=== PATIENT | female | born 1950 | race Caucasian/White ===

== ENCOUNTER 2017-05-26 21:51 | Inpatient (IN) ==
[2017-05-26] MEDS ORDERED: *HR* HYDROmorphone (PF) 1 MG/ML SYRINGE IVP ONE (22:24)
--- NOTE | 2017-05-26 22:24 | Emergency Department Note ---
START Narrative - START START: 67-year-old female who presents with concern for leg swelling and increasing pain from metastatic cancer. She does have more swelling on the right than left. She has had previous blood clot in the past. I would obtain basic labs, establish baseline creatinine clearance. Proceed with treatment with anticoagulation at this point and admission for pain control as well as evaluation of ongoing pain as she has no resources at home set up for her now inability to ambulate. She has no weakness on examination. Final disposition pending results of advanced imaging as well as laboratory analyses.
[2017-05-26 22:45] LABS: Basophils # 0.1 K/mcL (0.0-0.2); Basophils % 0.7 %; Eosinophils # 0.1 K/mcL (0.0-0.6); Eosinophils % 0.8 %; Hematocrit 33.6 % (35.3-44.9); Hemoglobin 11.5 g/dL (11.5-15.4); Immature Granulocytes % 0.3 % (0-4); Immature Platelets 3.3 % (1.1-6.1); Lymphocytes # 2.4 K/mcL (0.6-4.6); Lymphocytes % 31.5 %; Mean Corpuscular HGB Conc 34.2 g/dL (31.6-35.5); Mean Corpuscular Hemoglobin 36.5 pg (28.0-33.3); Mean Corpuscular Volume 106.7 fL (83.0-100.0); Monocytes # 0.9 K/mcL (0.0-1.3); Monocytes % 12.5 %; Neutrophils # 4.1 K/mcL (1.6-8.9); Platelet Count 165 K/mcL (140-400); Red Blood Count 3.15 M/mcL (3.82-4.97); Red Cell Distribution Width 17.1 % (11.5-14.5); Segmented Neutrophils % 54.2 %
[2017-05-26 22:52] LABS: INR 1.5; Prothrombin Time 15.8 Seconds (9.4-12.1)
[2017-05-26 22:57] LABS: Alanine Aminotransferase 35 Units/L (0-55); Albumin 2.4 g/dL (3.5-5.0); Albumin/Globulin Ratio 0.5 (1.1-2.2); Alkaline Phosphatase 549 Units/L (38-126); Aspartate Amino Transferase 142 Units/L (5-34); BUN/Creatinine Ratio 15 (6-26); Bilirubin,Total 5.7 mg/dL (0.2-1.2); Blood Urea Nitrogen 14 mg/dL (7-20); Calcium 8.4 mg/dL (8.6-10.8); Carbon Dioxide 31 mEq/L (19-29); Chloride 97 mEq/L (98-109); Globulin 4.6 g/dL (2.4-3.5); Glucose 117 mg/dL (70-99); Osmolality,Calculated 284 (280-300); Potassium 3.2 mEq/L (3.5-4.5); Sodium 136 mEq/L (136-145); eGFR For African Americans > 60 (> 60); eGFR For Non-African Americans 58 (> 60)
[2017-05-26] MEDS ORDERED: 0.9 % Sodium Chloride 250 ML IVC ONE (23:11)
[2017-05-27] MEDS ORDERED: *HR* FentaNYL (PF) 100 MCG/2 ML VIAL IVP ONE (01:06)
[2017-05-27] MEDS ORDERED: *HR* Enoxaparin 100 MG/ML SYRINGE SQ STA (01:09)
--- NOTE | 2017-05-27 01:39 | Emergency Department Note ---
Disposition Clinical Impression: Lower extremity edema Disposition: Admitted As Inpatient Condition: Good Time of Disposition: 02:27 General Adult HPI - General Chief complaint: ED Extremity Problem,Nontraumatic Stated complaint: R leg pain/swelling states has cancer Time Seen by Provider: 05/26/17 22:25 Source: patient, family Limitations: no limitations Nursing Notes Reviewed: Yes Vital Signs Reviewed: Yes - History of Present Illness HPI Narrative: 67-year-old female with known history of metastatic breast cancer presents 3 day history of right leg pain, and swelling. She states earlier in the week she was able to walk without difficulty and now she is unable to walk. She had contacted her oncologist earlier in the week, and they had advised to increase the pain medications and if that did not help the to come to the emergency department. Reported that the oncologist has recommended admission. Patient also mentions that her oncologist is wanted her to restart chemotherapy, however they are waiting an evaluation from her GI doctor, Dr. Brennan Patient does have a history of previous DVT. Patient denies any fever, chest pain, shortness of breath, abdominal pain. Pain Scale: 8 - Related Data Home Medications Medication Instructions Recorded Confirmed Cholecalciferol (Vitamin D3) 50,000 unit PO QWEEK 11/15/16 05/23/17 [Vitamin D] Furosemide [Lasix] 20 mg PO DAILY 11/15/16 05/23/17 Previous Rx's Medication Instructions Recorded Prochlorperazine Maleate 10 mg PO Q6HR PRN #30 tablet 08/03/16 [Compazine] Amitriptyline HCl 75 mg PO HS #30 tablet 11/30/16 Omeprazole [PriLOSEC] 20 mg PO DAILY #30 capsule 01/09/17 Diphenoxylate/Atropine [Lomotil 2 each PO QID PRN #90 tablet 01/21/17 2.5 mg/0.025 mg] Loperamide [Imodium] 2 mg PO PRN PRN #90 capsule 01/21/17 Sennosides [Senna] 2 tab PO HS #60 tablet 02/12/17 Benzonatate [Tessalon] 200 mg PO TID PRN #20 capsule 04/08/17 Albuterol Sulfate [Albuterol 2 puff IH Q4HR PRN #1 hfa.aer.ad 04/19/17 Inhaler] FentaNYL PATCH [Duragesic] 12 mcg TD Q72H #10 patch.td72 05/13/17 Morphine Immed Rel [Morphine 15 mg PO Q2-4H PRN #90 tab 05/13/17 Sulfate] Megestrol Acetate [Megace] 10 ml PO DAILY #300 udc 05/23/17 Allergies Allergy/AdvReac Type Severity Reaction Status Date / Time paper tape AdvReac Unknown Unknown Uncoded 05/23/17 15:58 Constitutional: Denies: fever, chills Eyes: Denies: eye discharge ENT ED: Denies: throat pain Cardiovascular: Denies: palpitations Respiratory: Denies: dyspnea Gastrointestinal: Denies: abdominal pain Genitourinary: Denies: dysuria Musculoskeletal: Denies: neck pain Integumentary: Denies: rash Neurological: Denies: headache, weakness, numbness, paresthesias Endocrine: Denies: fatigue Hematological/Lymphatic: Denies: easy bleeding Allergic/Immunologic: Denies: facial swelling Past Medical History - Past Medical History Medical history: Reports: non-contributory, cancer Surgical history: Reports: hysterectomy, orthopedic, other Psychiatric history: Reports: depression - Social History Smoking Status: Never smoker Smokeless Tobacco Status: No Alcohol use: Reports: none Drug use: Reports: none Physical Exam - General Limitations: no limitations General appearance: alert, in no apparent distress - Head Head exam: normocephalic - Eye Eye exam: Present: EOMI. Absent: conjunctival injection - ENT ENT exam: normal oropharynx, mucous membranes moist - Neck Neck exam: Present: full ROM - Chest Chest inspection: Absent: symmetric chest wall rise - Respiratory Respiratory exam: Absent: respiratory distress - Cardiovascular Cardiovascular exam: Present: regular rate - Extremities Exam Extremities exam: Present: normal capillary refill - Expanded Lower Extremity Exam Hip/Pelvis exam: Present: full ROM Upper leg exam: Present: swelling Knee exam: Present: tenderness, swelling Lower leg exam: Present: tenderness, swelling Ankle exam: Present: tenderness, swelling Foot/toe exam: Present: normal inspection Neurovascular/Tendon exam: Present: normal capillary refill. Absent: pulse deficit, motor deficit, sensory deficit, tendon deficit Gait: observed and normal - Back Exam Back exam: Present: full ROM - Neurological Exam Neurological exam: Present: alert - Psychiatric Psychiatric exam: Present: normal affect, normal mood - Skin Skin exam: Present: warm, dry, intact, pallor. Absent: rash, cyanosis, diaphoresis Course Course Narrative: Patient initially seen by [facility] provider, Dr. Hoang, please see his earlier documentation for details. 67-year-old female with known history of metastatic brain cancer and cirrhosis presents to emergency department three-day history of leg pain. She was advised to come the emergency Department for admission from her oncologist. Patient was initially seen by this provider Dr. Hoang. Please see his earlier documentation for details. I did discuss patient with Dr. Hoang, who had advised for admission to to patient's probable DVT, and pain control. Patient has been unable to walk at home, and she has limited resources as well. Dr. Hoang had recommended labs followed by Lovenox no contraindications, but advised he be studied could be performed after admitted. Patient seen and examined. She is resting comfortably. No acute distress. Workup pending. - Reevaluation(s) Reevaluation #1: Patient needs high probability for DVT per well's criteria. Per facility protocol will initiate Lovenox. Will discuss patient with hospitalist for admission uncontrolled further evaluation of her leg pain, and possible GI consult. Patient's last CT scan April 2017. Stable liver metastases, abdominopelvic CDs, possible osseous metastases, no evidence of pulmonary metastases. Time: 01:15 Reevaluation #2: Discussed patient with Dr. Mendieta, who agreed for acceptance to floor. Hospitalists provider have also asked for doppler. Time: 02:27 Vital Signs Temperature 98.1 F 05/26/17 21:52 Pulse Rate 82 05/26/17 21:52 Respiratory Rate 16 05/26/17 21:52 Blood Pressure 164/82 05/26/17 21:52 O2 Sat by Pulse Oximetry 95 05/26/17 21:52 Temperature 97.5 F L 05/27/17 04:05 Pulse Rate 79 05/27/17 04:05 Respiratory Rate 18 05/27/17 04:05 Blood Pressure 114/75 05/27/17 04:05 O2 Sat by Pulse Oximetry 96 05/27/17 04:56 Oxygen Delivery Oxygen Delivery Nasal Cannula Medical Decision Making - MDM Narrative Medical decision making narrative: All Lab Results (24 Hours) 05/26/17 05/26/17 05/26/17 Range/Units 22:39 22:39 22:39 WBC 7.5 D (4.3-11.1) K/mcL RBC 3.15 L (3.82-4.97) M/mcL Hgb 11.5 (11.5-15.4) g/dL Hct 33.6 L (35.3-44.9) % MCV 106.7 H (83.0-100.0) fL MCH 36.5 H (28.0-33.3) pg MCHC 34.2 (31.6-35.5) g/dL RDW 17.1 H (11.5-14.5) % Plt Count 165 (140-400) K/mcL MPV 10.0 (9.4-12.4) fL Immature Gran % 0.3 (0-4) % Seg Neutrophils % 54.2 % Lymphocytes % 31.5 % Monocytes % 12.5 % Eosinophils % 0.8 % Basophils % 0.7 % Neutrophils # 4.1 (1.6-8.9) K/mcL Lymphocytes # 2.4 (0.6-4.6) K/mcL Monocytes # 0.9 (0.0-1.3) K/mcL Eosinophils # 0.1 (0.0-0.6) K/mcL Basophils # 0.1 (0.0-0.2) K/mcL Immature Plt Fraction 3.3 (1.1-6.1) % PT 15.8 H (9.4-12.1) Seconds INR 1.5 Sodium 136 (136-145) mEq/L Potassium 3.2 L (3.5-4.5) mEq/L Chloride 97 L (98-109) mEq/L Carbon Dioxide 31 H (19-29) mEq/L BUN 14 (7-20) mg/dL Creatinine 0.96 (0.57-1.11) mg/dL Est GFR ( Amer) > 60 (> 60) Est GFR (Non-Af Amer) 58 L (> 60) BUN/Creatinine Ratio 15 (6-26) Glucose 117 H (70-99) mg/dL Calculated Osmolality 284 (280-300) Calcium 8.4 L (8.6-10.8) mg/dL Total Bilirubin 5.7 H (0.2-1.2) mg/dL AST 142 H (5-34) Units/L ALT 35 (0-55) Units/L Alkaline Phosphatase 549 H (38-126) Units/L Serum Total Protein 7.0 (6.0-8.3) g/dL Albumin 2.4 L (3.5-5.0) g/dL Globulin 4.6 H (2.4-3.5) g/dL Albumin/Globulin Ratio 0.5 L (1.1-2.2) - Lab Data Lab results reviewed: Yes I reviewed the patient's lab results. Result diagrams: 05/26/17 22:39 05/26/17 22:39 Lab Results 05/26/17 05/26/17 05/26/17 Range/Units 22:39 22:39 22:39 WBC 7.5 D (4.3-11.1) K/mcL RBC 3.15 L (3.82-4.97) M/mcL Hgb 11.5 (11.5-15.4) g/dL Hct 33.6 L (35.3-44.9) % MCV 106.7 H (83.0-100.0) fL MCH 36.5 H (28.0-33.3) pg MCHC 34.2 (31.6-35.5) g/dL RDW 17.1 H (11.5-14.5) % Plt Count 165 (140-400) K/mcL MPV 10.0 (9.4-12.4) fL Immature Gran % 0.3 (0-4) % Seg Neutrophils % 54.2 % Lymphocytes % 31.5 % Monocytes % 12.5 % Eosinophils % 0.8 % Basophils % 0.7 % Neutrophils # 4.1 (1.6-8.9) K/mcL Lymphocytes # 2.4 (0.6-4.6) K/mcL Monocytes # 0.9 (0.0-1.3) K/mcL Eosinophils # 0.1 (0.0-0.6) K/mcL Basophils # 0.1 (0.0-0.2) K/mcL Immature Plt Fraction 3.3 (1.1-6.1) % PT 15.8 H (9.4-12.1) Seconds INR 1.5 Sodium 136 (136-145) mEq/L Potassium 3.2 L (3.5-4.5) mEq/L Chloride 97 L (98-109) mEq/L Carbon Dioxide 31 H (19-29) mEq/L BUN 14 (7-20) mg/dL Creatinine 0.96 (0.57-1.11) mg/dL Est GFR ( Amer) > 60 (> 60) Est GFR (Non-Af Amer) 58 L (> 60) BUN/Creatinine Ratio 15 (6-26) Glucose 117 H (70-99) mg/dL Calculated Osmolality 284 (280-300) Calcium 8.4 L (8.6-10.8) mg/dL Total Bilirubin 5.7 H (0.2-1.2) mg/dL AST 142 H (5-34) Units/L ALT 35 (0-55) Units/L Alkaline Phosphatase 549 H (38-126) Units/L Serum Total Protein 7.0 (6.0-8.3) g/dL Albumin 2.4 L (3.5-5.0) g/dL Globulin 4.6 H (2.4-3.5) g/dL Albumin/Globulin Ratio 0.5 L (1.1-2.2) Urine Color (Yellow) Urine Clarity (Clear) Urine pH (5.0-8.0) pH Units Ur Specific [place] (1.010-1.025) Urine Protein (Neg-Trace) mg/dL Urine Glucose (UA) (Normal) mg/dL Urine Ketones (Negative) mg/dL Urine Blood (Negative) Urine Nitrite (Negative) Urine Bilirubin (Negative) Urine Urobilinogen (Normal) mg/dL Ur Leukocyte Esterase (Negative) Urine Microscopic RBC (0-3) per hpf Urine Microscopic WBC (0-3) per hpf Ur Squamous Epith Cells (None-Few) per lpf Urine Bacteria (None-Few) per hpf Hyaline Casts (None-Few) per lpf Ur Culture Indicated? (NO) 05/27/17 Range/Units 03:00 WBC (4.3-11.1) K/mcL RBC (3.82-4.97) M/mcL Hgb (11.5-15.4) g/dL Hct (35.3-44.9) % MCV (83.0-100.0) fL MCH (28.0-33.3) pg MCHC (31.6-35.5) g/dL RDW (11.5-14.5) % Plt Count (140-400) K/mcL MPV (9.4-12.4) fL Immature Gran % (0-4) % Seg Neutrophils % % Lymphocytes % % Monocytes % % Eosinophils % % Basophils % % Neutrophils # (1.6-8.9) K/mcL Lymphocytes # (0.6-4.6) K/mcL Monocytes # (0.0-1.3) K/mcL Eosinophils # (0.0-0.6) K/mcL Basophils # (0.0-0.2) K/mcL Immature Plt Fraction (1.1-6.1) % PT (9.4-12.1) Seconds INR Sodium (136-145) mEq/L Potassium (3.5-4.5) mEq/L Chloride (98-109) mEq/L Carbon Dioxide (19-29) mEq/L BUN (7-20) mg/dL Creatinine (0.57-1.11) mg/dL Est GFR ( Amer) (> 60) Est GFR (Non-Af Amer) (> 60) BUN/Creatinine Ratio (6-26) Glucose (70-99) mg/dL Calculated Osmolality (280-300) Calcium (8.6-10.8) mg/dL Total Bilirubin (0.2-1.2) mg/dL AST (5-34) Units/L ALT (0-55) Units/L Alkaline Phosphatase (38-126) Units/L Serum Total Protein (6.0-8.3) g/dL Albumin (3.5-5.0) g/dL Globulin (2.4-3.5) g/dL Albumin/Globulin Ratio (1.1-2.2) Urine Color [place] A (Yellow) Urine Clarity Cloudy A (Clear) Urine pH 6.0 (5.0-8.0) pH Units Ur Specific [place] 1.025 (1.010-1.025) Urine Protein Trace (Neg-Trace) mg/dL Urine Glucose (UA) Normal (Normal) mg/dL Urine Ketones Trace H (Negative) mg/dL Urine Blood Negative (Negative) Urine Nitrite Positive A (Negative) Urine Bilirubin Moderate H (Negative) Urine Urobilinogen 2.0 H (Normal) mg/dL Ur Leukocyte Esterase Moderate H (Negative) Urine Microscopic RBC 0-3 (0-3) per hpf Urine Microscopic WBC TNTC H (0-3) per hpf Ur Squamous Epith Cells Few (None-Few) per lpf Urine Bacteria Many H (None-Few) per hpf Hyaline Casts None Seen (None-Few) per lpf Ur Culture Indicated? YES A (NO) - Radiology Data Radiology results reviewed: Yes I reviewed the patient's radiology results.
[2017-05-27] MEDS ORDERED: *HR* Morphine Immed Rel 30 MG TABLET PO PRN (03:06)
[2017-05-27 03:10] LABS: Bilirubin,Urine Moderate (Negative); Blood,Urine Negative (Negative); Clarity,Urine Cloudy (Clear); Color,Urine Orange (Yellow); Glucose,Urine (UA) Normal (Normal); Ketones,Urine Trace mg/dL (Negative); Leukocyte Esterase,Urine Moderate (Negative); Nitrite,Urine Positive (Negative); Protein,Urine Trace mg/dL (Neg-Trace); Specific Gravity,Urine 1.025 (1.010-1.025)
[2017-05-27] MEDS ORDERED: Acetaminophen 325 MG TABLET PO PRN (03:10)
[2017-05-27] MEDS ORDERED: Ondansetron 4 MG/2 ML VIAL IVP PRN (03:10)
[2017-05-27] MEDS ORDERED: *HR* HYDROmorphone (PF) 1 MG/ML SYRINGE IVP PRN (03:10)
[2017-05-27] MEDS ORDERED: Naloxone 0.4 MG/ML INJ IVP PRN (03:10)
[2017-05-27 03:11] LABS: Bacteria,Urine Many per hpf (None-Few); Hyaline Casts,Urine None Seen per lpf (None-Few); RBC,Urine 0-3 per hpf (0-3); Squamous Epithelial Cell,Urine Few per lpf (None-Few); WBC,Urine TNTC per hpf (0-3)
[2017-05-27] MEDS ORDERED: *HR* FentaNYL PATCH 12 MCG PATCH TD SCH (03:15)
[2017-05-27] MEDS ORDERED: Ipratropium/Albuterol Neb 3 ML IH PRN (03:15)
--- NOTE | 2017-05-27 03:20 | Internal Med History&Physical ---
Date of Encounter: 05/27/17 Time of Encounter: 03:17 Assessment and Plan (1) Lower extremity edema Current visit: Yes Status: Acute Concerning for possible DVT, history of prior DVT Was given 90 mg of Lovenox at the emergency room, order venous Doppler Currently on Lovenox for DVT prophylaxis, may increase dose if DVT found Fall precautions Physical therapy note patient will therapy consults Omeprazole for GI prophylaxis. Admitted for observation. Full code. Time spent on this admission 40 minutes. High risk for falling (2) Altered mental status Current visit: Yes Status: Acute Likely secondary to opioids Qualifiers: Altered mental status type: somnolence Qualified Code(s): R40.0 - Somnolence (3) Hypokalemia Current visit: Yes Status: Acute Repeat as needed (4) Chronic pain Current visit: Yes Status: Acute Uses fentanyl patch, morphine by mouth at home May use Dilaudid IV for severe pain Palliative care consult for pain management Qualifiers: Chronic pain type: chronic pain syndrome Qualified Code(s): G89.4 - Chronic pain syndrome (5) Cirrhosis Current visit: Yes Status: Acute Possible pseudocirrhosis according to prior ultrasound Ordered ammonia level due to altered mental status, use lactulose Qualifiers: Hepatic cirrhosis type: unspecified hepatic cirrhosis Ascites presence: without ascites Qualified Code(s): K74.60 - Unspecified cirrhosis of liver (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 Crystal is a 67 year old female with a past medical history of metastatic breast cancer, s/p right mastectomy and chemotherapy, possible cirrhosis, liver metastases and osseous metastases, chronic kidney disease stage III, prior history of DVT. Was sent to the ER under the recommendation of her oncologist for evaluation of bilateral leg pain more on the right than the left. She has not been able to walk because of the pain for the past 3 days. The patient's dose of morphine has been increased and she is very somnolent at the moment as she received a dose of Dilaudid at the emergency room, on top of that she has a fentanyl patch. No ultrasound of the lower extremities has been done yet. She was given a dose of Lovenox 90 mg subcutaneous at the emergency room. Blood pressure is 164/82 potassium 3.2 AST 142 alkaline phosphatase 549. The patient is confused and was not able to provide much history, family was present during the examination. Past Med Surg Social Fam HX - Past Medical History Medical history: non-contributory, cancer (Invasive ductal carcinoma status post chemotherapy, has metastases to the liver, T8, L2 and bilateral iliac bones ), DVT, GERD, hyperlipidemia, hypertension, renal disease (Chronic kidney disease is stage III), other (Possible cirrhosis versus pseudocirrhosis, osteoarthritis, depression, peripheral neuropathy after chemotherapy, chronic L5 -S1 radiculopathy) Psychiatric history: depression - Past Surgical History Surgical History: hysterectomy, orthopedic, other, other (Right mastectomy) - Social History Smoking Status: Never smoker Smokeless Tobacco Status: No Alcohol use: none Drug use: none - Additional Family History Additional family history: Brother with myocardial infarction, father with lung cancer and mother with cervical cancer Internal Medicine - H&P: Meds Prochlorperazine Maleate [Compazine] 10 mg PO Q6HR PRN #30 tablet 08/03/16 [Rx] Cholecalciferol (Vitamin D3) [Vitamin D] 50,000 unit PO QWEEK 11/15/16 [History] Furosemide [Lasix] 20 mg PO DAILY 11/15/16 [History] Amitriptyline HCl 75 mg PO HS #30 tablet 11/30/16 [Rx] Omeprazole [PriLOSEC] 20 mg PO DAILY #30 capsule 01/09/17 [Rx] Diphenoxylate/Atropine [Lomotil 2.5 mg/0.025 mg] 2 each PO QID PRN #90 tablet [Rx] Loperamide [Imodium] 2 mg PO PRN PRN #90 capsule 01/21/17 [Rx] Sennosides [Senna] 2 tab PO HS #60 tablet 02/12/17 [Rx] Benzonatate [Tessalon] 200 mg PO TID PRN #20 capsule 04/08/17 [Rx] Albuterol Sulfate [Albuterol Inhaler] 2 puff IH Q4HR PRN #1 hfa.aer.ad 04/19/17 [Rx] FentaNYL PATCH [Duragesic] 12 mcg TD Q72H #10 patch.td72 05/13/17 [Rx] Morphine Immed Rel [Morphine Sulfate] 15 mg PO Q2-4H PRN #90 tab 05/13/17 [Rx] Megestrol Acetate [Megace] 10 ml PO DAILY #300 udc 05/23/17 [Rx] Allergies paper tape Adverse Reaction (Unknown, Uncoded 05/23/17 15:58) Unknown All Systems PM: A 10-system review of systems was performed and is negative for pertinent findings except as documented above in the HPI. Review of systems: The patient is not in distress, unable to complete review of systems due to her status - Constitutional Vitals: Temp Pulse Resp BP Pulse Ox 98.1 F 88 16 122/94 97 05/26/17 21:52 05/27/17 02:06 05/27/17 02:06 05/27/17 02:06 05/27/17 02:06 General appearance: Present: A&O X 2 - Head Head exam: Present: atraumatic, normocephalic Additional comments: Very somnolent - Eye Eye exam: Present: PERRL, conjuntiva pink, sclera anicteric Pupils: Present: PERRL - Neck Neck exam general surgery: Present: supple, trachea midline. Absent: lymphadenopathy - Respiratory Respiratory exam: Present: decreased breath sounds, CTAB. Absent: accessory muscle use, rales, rhonchi, wheezes - Cardiovascular Cardiovascular exam: Present: RRR, +S1, +S2. Absent: diastolic murmur, gallop, rubs, systolic murmur - GI/Abdominal GI/Abdominal exam: Present: normal bowel sounds, soft, no peritoneal signs. Absent: distended, tenderness - Extremities Exam Extremities exam: Present: pedal edema (+1 pitting edema in both lower extremities), warm, radial pulses palpable and symetrical. Absent: calf tenderness, cyanotic - Neurological Exam Neurological exam: Present: CN II-XII intact, no focal deficits. Absent: oriented X3, pronater drift, facial droop, speech deficit - Skin Skin exam: Present: dry, intact Internal Med - H&P Results - Labs CBC & Chem 7: 05/26/17 22:39 05/26/17 22:39
[2017-05-27] MEDS: Lactulose Oral Soln 20 GM/30 ML UDC PO SCH ×3 (04:47→22:57)
[2017-05-27] MEDS: *HR* Enoxaparin 40 MG/0.4 ML SYRINGE SQ SCH (05:45)
[2017-05-27] MEDS: Furosemide 20 MG TABLET PO SCH (08:40)
[2017-05-27] MEDS ORDERED: Megestrol Acetate 400 MG/10 ML UDC PO SCH (09:00)
--- NOTE | 2017-05-27 14:37 | Palliative - Consult Note ---
Date of Encounter: 05/27/17 Time of Encounter: 14:30 - Assessment and Plan (1) Cancer associated pain Current Visit: Yes Status: Acute Assessment and plan: Patient had recently been started on Duragesic patch 12mcg approx 9 days ago. She was also switched from Oxycodone to IR Morphine. Patient states she was only taking breakthrough medication about "every 8 hours" at home. She was very drowsy with IV Hydromorphone administered last night. She is tolerating po , so will D/C IV Dilaudid and utilized Morphine po for pain. Pain most prevelant rt hip with any mobility. Question if metastatic lesion related. Oncology consult is pending. (2) Cirrhosis Current Visit: Yes Status: Acute Assessment and plan: Patient had appt scheduled for tomorrow with Dr. Brennan. She states awaiting his eval prior to oncology making further treatment decisions. D/W hospitalist and they will consult GI while pt hospitalized. Qualifiers: Hepatic cirrhosis type: unspecified hepatic cirrhosis Ascites presence: without ascites Qualified Code(s): K74.60 - Unspecified cirrhosis of liver (3) Constipation due to opioid therapy Current Visit: Yes Status: Acute Assessment and plan: Currently on Lactulose/Senna. Large BM today. Monitor (4) Counseling regarding advanced care planning and goals of care Current Visit: Yes Status: Acute Assessment and plan: Met with pt and her sister - n - law re: goals of care. Patient states she desires further chemotherapy if a candidate, states she was supposed to have office visit with GI tomorrow per oncology recommendations to discuss her liver. Awaiting GI/oncology consults. Patient's [id number] did state that quality of life means a great deal to the patient, and they wanted to know the risks/benefit of further chemotherapy. Patient did complete her power of estate planning attorney and made [id number] Eyad her primary agent. She had previously discussed code status and today completed state DNR form as DNR-CCArrest, and also desired Do not intubate be added to form. PT has seen pt and recommended inpt rehab, SW will be following closely for D/C plan. (5) Metastatic breast cancer Current Visit: Yes Status: Acute Palliative-CN HPI - Data of Consult Consult date: 05/27/17 Requesting Physician: Tung Lentz Primary Care Provider: Santana Howard MD - Consult Narrative History of present illness: Ms. Crystal is a 67 year old female with a history of metastatic breast cancer originally diagnosed in 2013. She was admitted with Right leg pain that has increased over time, to the point she cannot ambulate. [id number]-[id number] states that last she could ambulate, and by Saturday, could barely stand to get to the wheelchair. Venous study preliminary report appears negative for DVT. She has had multiple chemo regimens, many poorly tolerated. Xeloda was recently stopped with appears to be liver issues. Patient was referred to GI for possible cirrhosis, and actually had appt there tomorrow. During my visit, she was comfortable as long as still. Appears drowsy, but is alert and oriented and can hold conversation. She does have pain upon any movement of the right hip, and holds her hip. She has recently been started on Duragesic patch, has used little for breakthrough pain since admission. She stated she had some nausea earlier today, but resolved at this time and she is eating soup. She stated she had been started on appetite stimulant, but had not got that prescription filled. CC: Tung Gimlan-Crystal Past Med Surg Social Fam HX - Past Medical History Medical history: non-contributory, cancer Psychiatric history: depression - Past Surgical History Surgical History: hysterectomy, orthopedic, other - Social History Smoking Status: Never smoker Smokeless Tobacco Status: No Alcohol use: none Drug use: none - Family History Mother Living Status: Cause of : cervical cancer Father Living Status: Cause of : liver Medications and Allergies Prochlorperazine Maleate [Compazine] 10 mg PO Q6HR PRN #30 tablet 08/03/16 [Rx] Cholecalciferol (Vitamin D3) [Vitamin D] 50,000 unit PO QWEEK 11/15/16 [History] Furosemide [Lasix] 20 mg PO DAILY 11/15/16 [History] Amitriptyline HCl 75 mg PO HS #30 tablet 11/30/16 [Rx] Omeprazole [PriLOSEC] 20 mg PO DAILY #30 capsule 01/09/17 [Rx] Sennosides [Senna] 2 tab PO HS #60 tablet 02/12/17 [Rx] FentaNYL PATCH [Duragesic] 12 mcg TD Q72H #10 patch.td72 07/24/17 [Rx] Morphine Immed Rel [Morphine Sulfate] 15 mg PO Q2-4H PRN #90 tab 05/13/17 [Rx] LORazepam [Ativan] 1 mg PO DAILY 05/27/17 [History] Allergies paper tape Adverse Reaction (Unknown, Uncoded 05/23/17 15:58) Unknown All systems: reviewed and no additional remarkable complaints except as stated ( Rt leg pain with any movement, poor appetite, occasaional nausea, lower extremity swelling) Palliative Care-Exam - Constitutional Vitals: Temp Pulse Resp BP Pulse Ox 97.8 F 69 18 115/75 95 05/27/17 06:41 05/27/17 06:41 05/27/17 06:41 05/27/17 06:41 05/27/17 08:48 General appearance: Present: no acute distress - Head Head Exam: Present: normal inspection, normocephalic - Eye Eye exam: Present: normal appearance, PERRL - Respiratory Respiratory exam: Present: decreased breath sounds, CTAB - Cardiovascular Cardiovascular exam: Present: +S1, +S2 - GI/Abdominal Exam GI/Abdominal exam: Present: distended, normal bowel sounds, soft - Catheter Type: Urethral (West) Additional comments: Proberta tinged urine - Extremities Exam Additional comments: 3+ edema bilateral lower extremities. - Neurological Exam Neurological exam: Present: alert, oriented X3 Additional comments: Unable to follow commands with Rt leg r/t pain with any movement. She lifts her leg to move. - Skin Skin exam: Present: dry, warm Internal Medicine - CN: Reslt - Labs CBC & Chem 7: 05/26/17 22:39 05/26/17 22:39 - ABG Interpretation ABG results: PT/INR, D-dimer PT 15.8 Seconds (9.4-12.1) H 05/26/17 22:39 Consult Discharge Plan - Plan Referrals: Santana Howard MD [Primary Care Provider] - Palliative Quality Palliative Quality: Screen for Code Status: Yes, Screen for Goals of Care: Yes, Screen for Pain: Yes, If Pain Regimen Started, Initiate Bowel Regimen: Yes, Screen for Nausea/Vomitting: Yes
--- NOTE | 2017-05-27 15:09 | Internal Med Progress Note ---
Date of Encounter: 05/27/17 Time of Encounter: 09:15 - Assessment and plan (1) Altered mental status Current Visit: Yes Status: Acute Assessment and plan: Acute encephalopathy, metabolic - likely multifactorial - secondary to opioid use, UTI and metastatic cancer - symptoms now improving Discontinue IV Dilaudid Continue home dose of present no patch and IR Morphine for chronic cancer associated pain Cardiac telemetry, labs in a.m., supportive care Qualifiers: Altered mental status type: somnolence Qualified Code(s): R40.0 - Somnolence (2) Lower extremity edema Current Visit: Yes Status: Acute Assessment and plan: Ultrasound Doppler - negative for DVT bilaterally Edema probably due to cirrhosis Continue Lasix by mouth (3) UTI (urinary tract infection) Current Visit: Yes Status: Acute Assessment and plan: Acute cystitis - present on admission, likely gram-negative bacteria Continue empiric IV Rocephin, cultures pending Qualifiers: Urinary tract infection type: acute cystitis Hematuria presence: without hematuria Qualified Code(s): N30.00 - Acute cystitis without hematuria (4) Chronic pain Current Visit: Yes Status: Acute Assessment and plan: Chronic cancer associated pain Recently started on Duragesic patch and also on IR Morphine - continue home meds Patient also has right hip pain - possible metastatic lesion Palliative care and Oncology consult Qualifiers: Chronic pain type: chronic pain syndrome Qualified Code(s): G89.4 - Chronic pain syndrome (5) Cirrhosis Current Visit: Yes Status: Chronic Assessment and plan: Possible pseudocirrhosis as per previous ultrasound Ammonia - 29 Patient is scheduled to follow-up with Dr. Brennan tomorrow. Patient is awaiting his evaluation prior to oncology making further treatment decisions Gastroenterology consult Qualifiers: Hepatic cirrhosis type: unspecified hepatic cirrhosis Ascites presence: without ascites Qualified Code(s): K74.60 - Unspecified cirrhosis of liver (6) Metastatic breast cancer Current Visit: Yes Status: Acute Assessment and plan: History of grade 3 invasive ductal carcinoma - Status post right sided mastectomy, status post chemotherapy - treatment intent palliative Metastatic disease to Liver, T8 vertebral body, L2 vertebral body and bilateral iliac bones Moderate amount of abdominal pelvic ascites Oncology consult pending (7) Depression Current Visit: No Status: Chronic Assessment and plan: Continue amitriptyline Qualifiers: Depression Type: major depressive disorder Major depression recurrence: recurrent Active/Remission status: in partial remission Qualified Code(s): F33.41 - Major depressive disorder, recurrent, in 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 Awake and alert. Not in any distress. Denies chest pain or shortness of breath. Tolerating oral diet. No fever. Hemodynamically stable. No other acute events or complaints. Admitted this morning for lower extremity edema with concern for DVT and for acute encephalopathy. Patient does have metastatic breast cancer and also possible cirrhosis. Ultrasound Doppler is negative for DVT bilaterally. Oncology, palliative care and gastroenterology consults. - Constitutional Vitals: Temp Pulse Resp BP Pulse Ox 97.8 F 69 18 115/75 95 05/27/17 06:41 05/27/17 06:41 05/27/17 06:41 05/27/17 06:41 05/27/17 08:48 General appearance: Present: A&O X 3, pleasant, no acute distress, answers questions appropriately - Head Head exam: Present: atraumatic - Eye Eye exam: Present: EOMI - ENT ENT exam: Present: mucous membranes dry - Neck Neck exam general surgery: Present: supple - Respiratory Respiratory exam: Present: decreased breath sounds (Slightly decreased in bases) . Absent: accessory muscle use, rales, rhonchi, tachypnea - Cardiovascular Cardiovascular exam: Present: RRR, +S1, +S2 - GI/Abdominal GI/Abdominal exam: Present: normal bowel sounds, soft. Absent: distended, firm , rigid, tenderness - Extremities Exam Extremities exam: Present: pedal edema (Pitting edema 2+ in both lower legs), radial pulses palpable and symetrical. Absent: calf tenderness, cyanotic - Neurological Exam Neurological exam: Present: alert, oriented X3, no focal deficits. Absent: facial droop, speech deficit Internal Medicine: Result - Labs CBC & Chem 7: 05/26/17 22:39 05/26/17 22:39 - ABG Interpretation ABG results: PT/INR, D-dimer PT 15.8 Seconds (9.4-12.1) H 05/26/17 22:39 Consult Discharge Plan - Plan Referrals: Santana Howard MD [Primary Care Provider] -
--- NOTE | 2017-05-27 15:29 | Venous Imaging Report ---
LE Venous Duplex Patient Name:Marlene Crystal Order Number:[id number] Procedure Date:05/27/2017 Date:1950ge:67 yrs Gender:Female Location:[facility] Room #: 3A22 Guest Services:Jasmyn Maya Referring MD:Jean-Claude Hoang, ski tow operator:None Reading MD:Jorge L Emerson MD , FACS Primary Indications:r/o DVT, history of DVT Secondary Indications: Risk Factors Yes/No Hx of DVT Hx of Chemotherapy Impressions: Bilateral lower extremity: normal superficial and deep exam. Recommendations: Test completed on 05/27/2017 at 5:50:00 am. Critical findings reported to WERNER Ferrer by phone at 5:55:00 am on 05/27/2017 by Jasmyn Maya. Lower Extremity Venous Duplex Side Vein Compress Spontaneous Flow Augment Diameter (cm) Depth (cm) Right Distal Iliac Normal Yes Phasic Yes Right Common Femoral Normal Yes Phasic Yes Right Superficial Femoral Normal Yes Phasic Yes Right Popliteal Normal Yes Phasic Yes Right Posterior Tibial Normal Yes Phasic Yes Right Peroneal Normal Yes Phasic Yes Right Saphenofemoral [place] Normal Yes Phasic Yes Right Great Saphenous Normal Yes Phasic Yes Right Great Saphenous [place] Normal Yes Phasic Yes Right Great Saphenous BK Normal Yes Phasic Yes Right Lesser Saphenous Normal Yes Phasic Yes Left Distal Iliac Normal Yes Phasic Yes Left Common Femoral Normal Yes Phasic Yes Left Superficial Femoral Normal Yes Phasic Yes Left Popliteal Normal Yes Phasic Yes Left Posterior Tibial Normal Yes Phasic Yes Left Peroneal Normal Yes Phasic Yes Left Saphenofemoral [place] Normal Yes Phasic Yes Left Great Saphenous Normal Yes Phasic Yes Left Great Saphenous [place] Normal Yes Phasic Yes Left Great Saphenous BK Normal Yes Phasic Yes Left Lesser Saphenous Normal Yes Phasic Yes Updated by Jorge L Emerson MD, FACS on 05/27/2017 11:06:12 AM Jorge L Emerson MD electronically signed on 05/27/2017 11:06:56 AM with status of Final
[2017-05-27] MEDS: *HR* Morphine Immed Rel 30 MG TABLET PO PRN ×2 (16:48→22:58)
[2017-05-27] MEDS: Sennosides 8.6 MG TABLET PO SCH (22:57)
[2017-05-28 04:41] LABS: Basophils # 0.1 K/mcL (0.0-0.2); Basophils % 0.8 %; Eosinophils % 0.6 %; Hematocrit 31.2 % (35.3-44.9); Hemoglobin 10.3 g/dL (11.5-15.4); Immature Granulocytes % 0.3 % (0-4); Lymphocytes % 31.8 %; Mean Corpuscular Hemoglobin 36.3 pg (28.0-33.3); Mean Corpuscular Volume 109.9 fL (83.0-100.0); Monocytes # 0.7 K/mcL (0.0-1.3); Monocytes % 11.8 %; Neutrophils # 3.4 K/mcL (1.6-8.9); Platelet Count 117 K/mcL (140-400); Red Blood Count 2.84 M/mcL (3.82-4.97); Red Cell Distribution Width 17.1 % (11.5-14.5); Segmented Neutrophils % 54.7 %
[2017-05-28 05:04] LABS: Alanine Aminotransferase 28 Units/L (0-55); Albumin/Globulin Ratio 0.5 (1.1-2.2); Alkaline Phosphatase 470 Units/L (38-126); Aspartate Amino Transferase 119 Units/L (5-34); BUN/Creatinine Ratio 13 (6-26); Bilirubin,Total 3.9 mg/dL (0.2-1.2); Blood Urea Nitrogen 11 mg/dL (7-20); Calcium 8.1 mg/dL (8.6-10.8); Carbon Dioxide 27 mEq/L (19-29); Chloride 105 mEq/L (98-109); Glucose 100 mg/dL (70-99); Osmolality,Calculated 289 (280-300); Potassium 3.7 mEq/L (3.5-4.5); Sodium 140 mEq/L (136-145); eGFR For African Americans > 60 (> 60); eGFR For Non-African Americans > 60 (> 60)
[2017-05-28] MEDS: *HR* Enoxaparin 40 MG/0.4 ML SYRINGE SQ SCH (06:36)
[2017-05-28] MEDS ORDERED: *HR* Morphine Immed Rel 30 MG TABLET PO PRN ×2 (09:44→15:31)
--- NOTE | 2017-05-28 09:49 | Palliative Progress Note ---
Date of Encounter: 05/28/17 Time of Encounter: 09:45 - Assessment and plan (1) Cancer associated pain Current Visit: Yes Status: Acute Assessment and plan: Continue Fentanyl patch. Her Morphine IR interval was decreased to 6 hrs yesterday r/t lethargy. I believe this was more attributed to the IV Hydromorphone she received. Will increase breakthrough Morphine to every 2 hours PRN and monitor. (2) Cirrhosis Current Visit: Yes Status: Chronic Assessment and plan: Awaiting GI consult for evaluation Qualifiers: Hepatic cirrhosis type: unspecified hepatic cirrhosis Ascites presence: without ascites Qualified Code(s): K74.60 - Unspecified cirrhosis of liver (3) Constipation due to opioid therapy Current Visit: Yes Status: Acute Assessment and plan: + large BM yesterday. On Lactulose and Senna (4) Counseling regarding advanced care planning and goals of care Current Visit: Yes Status: Acute Assessment and plan: [place] will be discussing discharge plan. DNR/DNI code status. DPOA is completed. Oncology awaiting GI eval before any further chemotherapy. (5) Metastatic breast cancer Current Visit: Yes Status: Acute - Time Spent With Patient Total time spent is greater than 50% in coordination of care (as documented) at patient's floor/unit and/or counseling patient: 25 - 35 minutes - Subjective Interval history: Patient awake and alert. C/O pain 9/10 at present and states it is "excruciating" when working with therapy. She was lethargic and unable to stay awake yesterday am after receiving IV Hydromorphone. This was d/c'd, but also her breakthrough pain med schedule changed to every 6 hours. Patient states that this is not effective for her and needs more frequently. + Urine culture, awaiting sensitivity. Awaiting GI consultation and oncology follow up. Adan Ryder at bedside. - Constitutional Vitals: Abnormal lab results RBC 2.84 M/mcL (3.82-4.97) L 05/28/17 03:22 Hgb 10.3 g/dL (11.5-15.4) L 05/28/17 03:22 Hct 31.2 % (35.3-44.9) L 05/28/17 03:22 MCV 109.9 fL (83.0-100.0) H 05/28/17 03:22 MCH 36.3 pg (28.0-33.3) H 05/28/17 03:22 RDW 17.1 % (11.5-14.5) H 05/28/17 03:22 Plt Count 117 K/mcL (140-400) L 05/28/17 03:22 PT 15.8 Seconds (9.4-12.1) H 05/26/17 22:39 Glucose 100 mg/dL (70-99) H 05/28/17 03:22 Calcium 8.1 mg/dL (8.6-10.8) L 05/28/17 03:22 Total Bilirubin 3.9 mg/dL (0.2-1.2) H 05/28/17 03:22 AST 119 Units/L (5-34) H 05/28/17 03:22 Alkaline Phosphatase 470 Units/L (38-126) H 05/28/17 03:22 Albumin 2.0 g/dL (3.5-5.0) L 05/28/17 03:22 Globulin 4.0 g/dL (2.4-3.5) H 05/28/17 03:22 Albumin/Globulin Ratio 0.5 (1.1-2.2) L 05/28/17 03:22 Urine Color Tillman (Yellow) A 05/27/17 03:00 Urine Clarity Cloudy (Clear) A 05/27/17 03:00 Urine Ketones Trace mg/dL (Negative) H 05/27/17 03:00 Urine Nitrite Positive (Negative) A 05/27/17 03:00 Urine Bilirubin Moderate (Negative) H 05/27/17 03:00 Urine Urobilinogen 2.0 mg/dL (Normal) H 05/27/17 03:00 Ur Leukocyte Esterase Moderate (Negative) H 05/27/17 03:00 Urine Microscopic WBC TNTC per hpf (0-3) H 05/27/17 03:00 Urine Bacteria Many per hpf (None-Few) H 05/27/17 03:00 Ur Culture Indicated? YES (NO) A 05/27/17 03:00 General appearance: Present: no acute distress - Respiratory Respiratory exam: Present: decreased breath sounds, CTAB - Cardiovascular Cardiovascular exam: Present: +S1, +S2 - GI/Abdominal GI/Abdominal exam: Present: distended, soft Additional comments: + ascites - Additional comments: West with pink tinged urine - Extremities Exam Additional comments: 2-3+ edema lower extremities - Neurological Exam Neurological exam: Present: alert, oriented X3, strengths equal and symetr throughout Additional comments: generalized weakness. Rt leg pain with any movement. - Skin Skin exam: Present: dry, warm Palliative Quality Palliative Quality: Screen for Code Status: Yes, Screen for Goals of Care: Yes, Screen for Pain: Yes, If Pain Regimen Started, Initiate Bowel Regimen: Yes, Screen for Nausea/Vomitting: Yes - Labs CBC & Chem 7: 05/28/17 03:22 05/28/17 03:22 Labs: Laboratory Results - last 24 hr 05/28/17 05/28/17 03:22 03:22 WBC 6.2 RBC 2.84 L Hgb 10.3 L Hct 31.2 L MCV 109.9 H MCH 36.3 H MCHC 33.0 RDW 17.1 H Plt Count 117 L MPV 11.0 Immature Gran % 0.3 Seg Neutrophils % 54.7 Lymphocytes % 31.8 Monocytes % 11.8 Eosinophils % 0.6 Basophils % 0.8 Neutrophils # 3.4 Lymphocytes # 2.0 Monocytes # 0.7 Eosinophils # 0.0 Basophils # 0.1 Sodium 140 Potassium 3.7 Chloride 105 Carbon Dioxide 27 BUN 11 Creatinine 0.82 Est GFR ( Amer) > 60 Est GFR (Non-Af Amer) > 60 BUN/Creatinine Ratio 13 Glucose 100 H Calculated Osmolality 289 Calcium 8.1 L Total Bilirubin 3.9 H AST 119 H ALT 28 Alkaline Phosphatase 470 H Serum Total Protein 6.0 Albumin 2.0 L Globulin 4.0 H Albumin/Globulin Ratio 0.5 L - ABG Interpretation ABG results: PT/INR, D-dimer PT 15.8 Seconds (9.4-12.1) H 05/26/17 22:39 Consult Discharge Plan - Plan Referrals: Santana Howard MD [Primary Care Provider] -
[2017-05-28] MEDS: Furosemide 20 MG TABLET PO SCH (12:07)
[2017-05-28] MEDS: Lactulose Oral Soln 20 GM/30 ML UDC PO SCH ×2 (12:07→20:23)
--- NOTE | 2017-05-28 12:34 | Gastroenterology Consult Note ---
Date of Encounter: 05/28/17 Time of Encounter: 11:30 - Assessment and plan (1) Cirrhosis Current Visit: Yes Status: Chronic Assessment and plan: CT A/P 05/09/2017 was stable appearance of hepatic metastatic disease and probable pseudocirrhosis. Moderate amount of abdominopelvic ascites increased since prior exam. Ultrasound showed not enough fluid to perform safe paracentesis on 05/17/17. Will complete liver workup and obtain RUQ US. Qualifiers: Hepatic cirrhosis type: unspecified hepatic cirrhosis Ascites presence: without ascites Qualified Code(s): K74.60 - Unspecified cirrhosis of liver (2) Metastatic breast cancer Current Visit: Yes Status: Acute - Time Spent With Patient Total time spent is greater than 50% in coordination of care (as documented) at patient's floor/unit and/or counseling patient: GI History of Present Illness - Data of Consult Patient: new to practice Consult date: 05/28/17 Requesting Physician: Anthony Bustamante MD - Consult Narrative Reason for consult: cirrhosis, Breast CA with liver mets History of present illness: Ms. Crystal is a 67 year old female with PMHx of metastatic breast cancer, s/p right mastectomy and chemotherapy, possible cirrhosis, liver metastases and osseous metastases, CKD stage III, prior history of DVT. She was admitted with right leg pain that has increased over time, to the point she cannot ambulate. [id number]-[id number] states that last she could ambulate, and by Saturday, could barely stand to get to the wheelchair. Venous study preliminary report appears negative for DVT. She has had multiple chemo regimens, many poorly tolerated. Xeloda was recently stopped with appears to be liver issues. Patient was referred to GI for cirrhosis, and had appointment scheduled for today. She denies and alcohol abuse or IVDU. Procedures: Colonoscopy 12/09/2015 Dr. Kunz: Non-bleeding internal hemorrhoids, otherwise normal. NSAIDs: None Anticoagulation: None Past Med Surg Social Fam HX - Past Medical History Medical history: non-contributory, cancer Psychiatric history: depression - Past Surgical History Surgical History: hysterectomy, orthopedic, other - Social History Smoking Status: Never smoker Smokeless Tobacco Status: No Alcohol use: none Drug use: none - Family History Mother Living Status: Cause of : cervical cancer Father Living Status: Cause of : liver - Gastrointestinal Gastrointestinal: Present: as per HPI - Constitutional Constitutional: as per HPI - EENT Eyes: as per HPI Ears: Present: as per HPI Nose, mouth and throat: Present: as per HPI - Cardiovascular Cardiovascular ROS: Present: as per HPI - Respiratory Respiratory IM: Present: as per HPI - Genitourinary Genitourinary: Absent: change in color, Urinary frequency - Neurological ROS Neurological GI: Present: as per HPI - Hematologic/Lymphatic Hematologic/Lymphatic pediatric: Present: as per HPI - Musculoskeletal Musculoskeletal ROS GI: Present: as per HPI - Integumentary Integumentary GI: Present: as per HPI - Psychiatric ROS Psychiatric GI: Present: as per HPI - Endocrine Endocrine IM: Present: as per HPI - Constitutional Vitals: Temp Pulse Resp BP Pulse Ox 98.1 F 103 16 133/86 95 05/28/17 10:57 05/28/17 10:57 05/28/17 10:57 05/28/17 10:57 05/28/17 10:57 General appearance: Present: cooperative, A&O X 3, no acute distress, answers questions appropriately - Head Head exam: Present: atraumatic, normocephalic - Eye Eye exam: Present: normal appearance, sclera anicteric - ENT ENT exam: Present: mucous membranes dry - Neck Neck exam general surgery: Present: normal inspection, trachea midline - Respiratory Respiratory exam: Present: decreased breath sounds, CTAB - Cardiovascular Cardiovascular exam: Present: RRR, +S1, +S2 - GI/Abdominal GI/Abdominal exam: Present: soft, no peritoneal signs. Absent: distended, firm , guarding, tenderness - Rectal Rectal exam: Present: deferred - Extremities Exam Extremities exam: Present: pedal edema, warm - Neurological Exam Neurological exam: Present: no focal deficits - Psychiatric Psychiatric exam: Present: normal affect, normal mood - Skin Skin exam: Present: dry, intact, normal color, warm Results - Labs CBC & Chem 7: 05/28/17 03:22 05/28/17 03:22 Labs: Last Result Calcium 8.1 mg/dL (8.6-10.8) L 05/28/17 03:22 Entire Visit Hgb 10.3 g/dL (11.5-15.4) L 05/28/17 03:22 Hct 31.2 % (35.3-44.9) L 05/28/17 03:22 PT 15.8 Seconds (9.4-12.1) H 05/26/17 22:39 Total Bilirubin 3.9 mg/dL (0.2-1.2) H 05/28/17 03:22 AST 119 Units/L (5-34) H 05/28/17 03:22 ALT 28 Units/L (0-55) 05/28/17 03:22 Ammonia 29 mcmol/L (18-72) 05/27/17 03:16 - ABG ABG results: PT/INR, D-dimer PT 15.8 Seconds (9.4-12.1) H 05/26/17 22:39 Consult Discharge Plan - Plan Referrals: Santana Howard MD [Primary Care Provider] -
--- NOTE | 2017-05-28 13:45 | Internal Med Progress Note ---
Date of Encounter: 05/28/17 Time of Encounter: 08:50 - Assessment and plan (1) Altered mental status Current Visit: Yes Status: Acute Assessment and plan: Improving. Acute metabolic encephalopathy related to narcotic medication use. This is improving with decrease in amount of narcotics to treat pain. We will continue to monitor mental status. Qualifiers: Altered mental status type: somnolence Qualified Code(s): R40.0 - Somnolence (2) Chronic pain Current Visit: Yes Status: Acute Assessment and plan: Acute on chronic pain related to metastatic breast cancer. Palliative care consulted to help manage pain. Patient currently on Duragesic 12 g patch along with morphine 15 mg every 2 hours as needed for breakthrough pain. Patient is DNR comfort care and DNI. Remains at high risk for complications due to narcotic use. Qualifiers: Chronic pain type: chronic pain syndrome Qualified Code(s): G89.4 - Chronic pain syndrome (3) Cirrhosis Current Visit: Yes Status: Chronic Assessment and plan: Gastroenterology has been consulted regarding possible cirrhosis. Recommend ultrasound of the abdomen. Patient does not have enough ascites fluid for paracentesis. Patient does have elevated bilirubin levels. Qualifiers: Hepatic cirrhosis type: unspecified hepatic cirrhosis Ascites presence: without ascites Qualified Code(s): K74.60 - Unspecified cirrhosis of liver (4) Depression Current Visit: Yes Status: Chronic Assessment and plan: Continue Elavil Qualifiers: Depression Type: major depressive disorder Major depression recurrence: recurrent Active/Remission status: in partial remission Qualified Code(s): F33.41 - Major depressive disorder, recurrent, in partial remission (5) Lower extremity edema Current Visit: Yes Status: Acute Assessment and plan: Venous Doppler negative for DVT. Could be dependent edema from hypoalbuminemia (6) Metastatic breast cancer Current Visit: Yes Status: Acute (7) UTI (urinary tract infection) Current Visit: Yes Status: Acute Assessment and plan: Urine culture positive for gram-negative rods. Await final culture results. Continue Rocephin. 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 She is more awake and alert. She denies any new complaints at this time. No nausea or vomiting. Tolerating diet well. Denies any dysuria - Constitutional Vitals: Temp Pulse Resp BP Pulse Ox 98.1 F 103 16 133/86 95 05/28/17 10:57 05/28/17 10:57 05/28/17 10:57 05/28/17 10:57 05/28/17 10:57 General appearance: Present: A&O X 3, pleasant, no acute distress, answers questions appropriately - Eye Eye exam: Present: scleral icterus - Respiratory Respiratory exam: Present: CTAB. Absent: accessory muscle use, rales, rhonchi, wheezes - Cardiovascular Cardiovascular exam: Present: RRR, +S1, +S2. Absent: diastolic murmur, gallop, rubs, systolic murmur - GI/Abdominal GI/Abdominal exam: Present: normal bowel sounds, soft, no peritoneal signs. Absent: distended, tenderness - Extremities Exam Extremities exam: Present: tenderness (Right hip), warm, radial pulses palpable and symetrical. Absent: calf tenderness, cyanotic, pedal edema - Neurological Exam Neurological exam: Present: alert, oriented X3, no focal deficits. Absent: facial droop, speech deficit - Skin Skin exam: Present: dry, intact Internal Medicine: Result - Labs CBC & Chem 7: 05/28/17 03:22 05/28/17 03:22 Labs: Short CBC 05/28/17 Range/Units 03:22 WBC 6.2 (4.3-11.1) K/mcL Hgb 10.3 L (11.5-15.4) g/dL Hct 31.2 L (35.3-44.9) % Plt Count 117 L (140-400) K/mcL Neutrophils # 3.4 (1.6-8.9) K/mcL BMP 05/28/17 03:22 Sodium 140 Potassium 3.7 Chloride 105 Carbon Dioxide 27 BUN 11 Creatinine 0.82 Glucose 100 H Calcium 8.1 L Liver Function 05/28/17 Range/Units 03:22 Total Bilirubin 3.9 H (0.2-1.2) mg/dL AST 119 H (5-34) Units/L ALT 28 (0-55) Units/L Alkaline Phosphatase 470 H (38-126) Units/L Albumin 2.0 L (3.5-5.0) g/dL - ABG Interpretation ABG results: PT/INR, D-dimer PT 15.8 Seconds (9.4-12.1) H 05/26/17 22:39 Consult Discharge Plan - Plan Referrals: Santana Howard MD [Primary Care Provider] -
--- NOTE | 2017-05-28 13:58 | Oncology Inp Consult Note ---
<Taylor Vega E - Last Filed: 05/28/17 13:55> Date of Encounter: 05/28/17 Time of Encounter: 11:00 Assessment and Plan (1) Right leg pain Status: Acute Assessment and plan: Pain and weakness in R leg with some discomfort in lumbar spine. Spoke with hospitalist regarding obtaining MRI of thoracic and lumbar spine for further evaluation of this severe pain. Spoke with Radiation oncologist, Dr. Erazo who will see patient regarding palliative radiation if needed. (2) Lower extremity edema Status: Acute Assessment and plan: Doppler negative, could be associated with cirrhosis (3) UTI (urinary tract infection) Status: Acute Assessment and plan: Culture indicates gram - nichole -sensitivity pending is on Rocephen. Qualifiers: Urinary tract infection type: acute cystitis Hematuria presence: without hematuria Qualified Code(s): N30.00 - Acute cystitis without hematuria (4) Metastatic breast cancer Status: Chronic Assessment and plan: Xeloda discontinued on 05/13/[address] Sam awaiting consult with GI regarding cirrhosis prior to further recommendation for treatment. Patient unsure if she wants to continue active treatment. - Data of Consult Patient: known to practice within the last 3 years Consult date: 05/28/17 Requesting Physician: Anthony Bustamante MD Primary Care Provider: Santana Howard MD - Consult Narrative Reason for consult: metastatic breast cancer, R leg pain History of present illness: Ms. Crystal is a 67 year old female with a past medical history of metastatic breast cancer, status post right mastectomy and chemotherapy, possible cirrhosis , liver metastasis, chemotherapy induced peripheral neuropathy, osseous metastasis, chronic kidney disease stage III, and history of DVT who was admitted to [facility] with pain in R leg. She is well know to the cancer center she is currently being treated for metastatic breast cancer. Most recently treated with Xeloda. This treatment was discontinued on 05/13/[address] secondary [address] progression[address] scan on indicated Stable appearance of hepatic metastatic disease and probable pseudocirrhosis. Moderate amount of abdominopelvic ascites, increased since prior examination. Findings concerning for osseous metastatic disease involving at least the T8 vertebral body, L2 vertebral body and bilateral iliac bones. CA 27-29 also rising. For completed oncology history please see note of 05/16/17. Dr. Sam, primary oncologist is awaiting consult with GI regarding possible cirrhosis prior to recommending further chemotherapy. 05/27/17, doppler study of on lower extremities negative for DVT. In speaking with patient and her [id number] the patient is undecided whether to continue treatment. She states her #1 goal is to be comfortable. At this time she is having significant pain in her right leg and secondary to pain and weakness she is not able to ambulate. We did talk at great length regarding what her wishes are. She states she would rather have good quality time with her family versus prolonged time when she was having severe pain and had a poor quality of life. [id number]-hax states patients children are in denial and refuse to talk about her mother condition. Explained to the patient that the pain in her leg could be related to the lesions in the ileum or it could be related to lesions in her spine. She would consider radiation therapy if needed to try to help control the pain with palliative radiation. I did discuss her most recent CAT scan with Dr. Erazo, radiation oncology. We feel that a MRI of the thoracic and lumbar spine would be helpful in helping us determine the cause of her significant pain and weakness in her right leg. Past Med Surg Social Fam HX - Past Medical History Medical history: cancer (metastatic breast with liver and osseous metastasis), cirrhosis (possible ), DVT Psychiatric history: depression - Past Surgical History Surgical History: hysterectomy, orthopedic, other - Social History Smoking Status: Never smoker Smokeless Tobacco Status: No Alcohol use: none Drug use: none - Family History Mother Living Status: Cause of : cervical cancer Father Living Status: Cause of : liver Medications and Allergies Prochlorperazine Maleate [Compazine] 10 mg PO Q6HR PRN #30 tablet 08/03/16 [Rx] Cholecalciferol (Vitamin D3) [Vitamin D] 50,000 unit PO QWEEK 11/15/16 [History] Furosemide [Lasix] 20 mg PO DAILY 11/15/16 [History] Amitriptyline HCl 75 mg PO HS #30 tablet 11/30/16 [Rx] Omeprazole [PriLOSEC] 20 mg PO DAILY #30 capsule 01/09/17 [Rx] Sennosides [Senna] 2 tab PO HS #60 tablet 02/12/17 [Rx] FentaNYL PATCH [Duragesic] 12 mcg TD Q72H #10 patch.td72 05/13/17 [Rx] Morphine Immed Rel [Morphine Sulfate] 15 mg PO Q2-4H PRN #90 tab 05/13/17 [Rx] LORazepam [Ativan] 1 mg PO DAILY 05/27/17 [History] Allergies paper tape Adverse Reaction (Unknown, Uncoded 05/23/17 15:58) Unknown All systems: reviewed and no additional remarkable complaints except as stated Constitutional: Present: fatigue, weakness Nose, mouth and throat: Present: dry mouth Gastrointestinal: Present: bloating Musculoskeletal: Present: back pain (with pain most severe in R leg), limited range of motion (R leg), muscle weakness (R leg), radiating pain into limb Neurological: Present: confusion (, ongoing trouble with memory) Psychiatric: Present: depression, difficulty concentrating Oncology - Exam - Constitutional Vitals: Temp Pulse Resp BP Pulse Ox 98.1 F 103 16 133/86 95 05/28/17 10:57 05/28/17 10:57 05/28/17 10:57 05/28/17 10:57 05/28/17 10:57 - Head Head exam: Present: normal inspection, normocephalic - Eye Eye exam: Present: normal appearance - ENT ENT exam: Present: mucous membranes dry - Neck Neck exam: Present: normal inspection - Respiratory Respiratory exam: Present: CTAB - Cardiovascular Cardiovascular exam: Present: RRR - GI/Abdominal GI/Abdominal exam: Present: distended (slight distension, ascites), normal bowel sounds, soft - Extremities Exam Extremities exam: Present: pedal edema (+2 lower extremites, L >R) - Neurological Exam Neurological exam: Present: alert, oriented X3 - Psychiatric Psychiatric exam: Present: depressed - Skin Skin exam: Present: dry (ashen color) - Additional findings Additional findings: Unable to lift R leg secondary to pain and weakness. Oncology - Results - Labs Labs: Short CBC 05/28/17 Range/Units 03:22 WBC 6.2 (4.3-11.1) K/mcL Hgb 10.3 L (11.5-15.4) g/dL Hct 31.2 L (35.3-44.9) % Plt Count 117 L (140-400) K/mcL Neutrophils # 3.4 (1.6-8.9) K/mcL BMP 05/28/17 03:22 Sodium 140 Potassium 3.7 Chloride 105 Carbon Dioxide 27 BUN 11 Creatinine 0.82 Glucose 100 H Calcium 8.1 L Liver Function 05/28/17 Range/Units 03:22 Total Bilirubin 3.9 H (0.2-1.2) mg/dL AST 119 H (5-34) Units/L ALT 28 (0-55) Units/L Alkaline Phosphatase 470 H (38-126) Units/L Albumin 2.0 L (3.5-5.0) g/dL Consult Discharge Plan - Plan Referrals: Santana Howard MD [Primary Care Provider] - <Master Ding - Last Filed: 05/28/17 19:20> Date of Encounter: 05/28/17 - Data of Consult Requesting Physician: Anthony Bustamante MD Primary Care Provider: Santana Howard MD - Consult Narrative History of present illness: I examined this patient and my medical decision-making was reviewed with the Advanced Practice Nurse. I agree with the documented findings, disposition and treatment plan as described except to the extent set forth below. Rt leg pain and inability to move due to pain last few days. Lactulose for incr ammonia levels/cirrhosis-causing diarrhea Imaging hip X ray--Concern for subtle metastatic disease right mid femoral neck possible inferior medial femoral neck cortical fracture. Hip imaging/MRI has been recommended, ortho evaluation, possible RT, melba discuss with rad onc MRI spine reviewed await official report. Tumor marker level increased, hepatic mets, known mets in the spine. UC gm neg rods on ciprofloxacin. Oncology - Exam - Constitutional Vitals: Temp Pulse Resp BP Pulse Ox 98.5 F 91 16 132/85 94 05/28/17 15:34 05/28/17 15:34 05/28/17 15:34 05/28/17 15:34 05/28/17 15:34 Oncology - Results - Labs Labs: Short CBC 05/28/17 Range/Units 03:22 WBC 6.2 (4.3-11.1) K/mcL Hgb 10.3 L (11.5-15.4) g/dL Hct 31.2 L (35.3-44.9) % Plt Count 117 L (140-400) K/mcL Neutrophils # 3.4 (1.6-8.9) K/mcL BMP 05/28/17 03:22 Sodium 140 Potassium 3.7 Chloride 105 Carbon Dioxide 27 BUN 11 Creatinine 0.82 Glucose 100 H Calcium 8.1 L Liver Function 05/28/17 Range/Units 03:22 Total Bilirubin 3.9 H (0.2-1.2) mg/dL AST 119 H (5-34) Units/L ALT 28 (0-55) Units/L Alkaline Phosphatase 470 H (38-126) Units/L Albumin 2.0 L (3.5-5.0) g/dL
--- NOTE | 2017-05-28 15:35 | Event Note ---
Date of Encounter: 05/28/17 Time of Encounter: 15:30 Patient with uncontrolled pain this afternoon and crying with movement. Spoke with pt and sister shazia peng at bedside. Will increase Fentanyl patch to 25 mcg, continue Morphine po 15 every 4 h PRN, and add IV Morphine 4mg for breakthrough to help with pain control. Await MRI results. She still has no mobility of rt leg r/t pain with any movement. Appreciate oncology recommendations for further imaging. Possible palliative radiation for pain control if metastatic lesion identified.
[2017-05-28] MEDS: *HR* FentaNYL PATCH 25 MCG PATCH TD SCH ×2 (17:18→20:21)
[2017-05-28] MEDS: *HR* Morphine 2 MG/ML SYRINGE IVP PRN (17:19)
[2017-05-28] MEDS: Sennosides 8.6 MG TABLET PO SCH (20:26)
[2017-05-29] MEDS: *HR* Morphine 2 MG/ML SYRINGE IVP PRN ×3 (00:34→13:06)
[2017-05-29] MEDS: *HR* Enoxaparin 40 MG/0.4 ML SYRINGE SQ SCH (06:07)
[2017-05-29] MEDS: Furosemide 20 MG TABLET PO SCH (09:30)
[2017-05-29] MEDS: Lactulose Oral Soln 20 GM/30 ML UDC PO SCH (09:30)
--- NOTE | 2017-05-29 11:30 | Gastroenterology Progress Note ---
<Marquise Paula - Last Filed: 05/29/17 11:25> Date of Encounter: 05/29/17 Time of Encounter: 10:45 - Assessment and plan (1) Cirrhosis Current Visit: Yes Status: Chronic Assessment and plan: CT A/P 05/09/2017 was stable appearance of hepatic metastatic disease and probable pseudocirrhosis. Moderate amount of abdominopelvic ascites increased since prior exam. Dr. Brennan reviewed imaging, and found it difficult to determine if results are due to cirrhosis or 2 treatment of her cancer. No portal hypertension was found. Qualifiers: Hepatic cirrhosis type: unspecified hepatic cirrhosis Ascites presence: without ascites Qualified Code(s): K74.60 - Unspecified cirrhosis of liver (2) Metastatic breast cancer Current Visit: Yes Status: Chronic - Time Spent With Patient Total time spent is greater than 50% in coordination of care (as documented) at patient's floor/unit and/or counseling patient: - Subjective Interval history: Patient continues to have pain and right hip but does state that the pain has improved some. She denies abdominal pain, nausea, or vomiting. - Constitutional Vitals: Temp Pulse Resp BP Pulse Ox 98.0 F 92 16 133/82 97 05/29/17 09:00 05/29/17 09:00 05/29/17 09:00 05/29/17 09:00 05/29/17 09:34 General appearance: Present: cooperative, A&O X 3, no acute distress, answers questions appropriately - Head Head exam: Present: atraumatic, normocephalic - Eye Eye exam: Present: normal appearance, sclera anicteric - ENT ENT exam: Present: mucous membranes dry - Neck Neck exam general surgery: Present: normal inspection, trachea midline - Respiratory Respiratory exam: Present: decreased breath sounds, CTAB - Cardiovascular Cardiovascular exam: Present: RRR, +S1, +S2 - GI/Abdominal GI/Abdominal exam: Present: soft, no peritoneal signs. Absent: distended, firm , guarding, tenderness - Rectal Rectal exam: Present: deferred - Extremities Exam Extremities exam: Present: warm - Neurological Exam Neurological exam: Present: no focal deficits - Psychiatric Psychiatric exam: Present: normal affect, normal mood - Skin Skin exam: Present: dry, intact, normal color, warm Results - Labs CBC & Chem 7: 05/28/17 03:22 05/28/17 03:22 Labs: Last Result Calcium 8.1 mg/dL (8.6-10.8) L 05/28/17 03:22 Ferritin 1236 ng/ml (5-204) H 05/28/17 12:29 Entire Visit Hgb 10.3 g/dL (11.5-15.4) L 05/28/17 03:22 Hct 31.2 % (35.3-44.9) L 05/28/17 03:22 PT 15.8 Seconds (9.4-12.1) H 05/26/17 22:39 Ferritin 1236 ng/ml (5-204) H 05/28/17 12:29 Total Bilirubin 3.9 mg/dL (0.2-1.2) H 05/28/17 03:22 AST 119 Units/L (5-34) H 05/28/17 03:22 ALT 28 Units/L (0-55) 05/28/17 03:22 Ammonia 29 mcmol/L (18-72) 05/27/17 03:16 - ABG ABG results: PT/INR, D-dimer PT 15.8 Seconds (9.4-12.1) H 05/26/17 22:39 - Impressions Impressions Hip X-Ray 05/28/17 13:42 IMPRESSION: Concern for subtle metastatic disease right mid femoral neck possible inferior medial femoral neck cortical fracture. Consider further evaluation with right hip MRI most importantly to evaluate for metastatic disease with possible subtle buckle fracture of the femoral neck scratched medially. The findings were sent to the Radiology Results Communication Center at 3:19 pm on 05/28/2017to be communicated to a licensed caregiver. D/ / Sancho Barker MD / Sancho Barker MD Interpreting Provider: Sancho Barker MD Lumbar Spine MRI 05/28/17 14:04 IMPRESSION: 1. Metastatic lesions are noted at L2, L3, left sacrum, and bilateral zack. 2. Severe central spinal canal narrowing at L3-L4, and L4-L5. 3. Left paracentral disc extrusion at L5-S1, with caudal migration of disc, displacing the left S1 nerve root in the lateral recess. Mild central spinal canal narrowing is noted at this level. D/ / 05/28/2017 20:00:18 Don Vu MD / Anabell Benavides Interpreting Provider: Don Vu MD Thoracic Spine MRI 05/28/17 14:04 IMPRESSION: 1. There are multifocal metastatic lesions noted in the thoracic spine, most pronounced at T3, T4, and T8. No pathologic fractures are identified. 2. Cirrhosis. 3. Small bilateral pleural effusions, left side greater than right. D/ / 05/28/2017 19:21:30 Don Vu MD / Anabell Benavides Interpreting Provider: Don Vu MD Liver Ultrasound 05/28/17 16:00 IMPRESSION: Cirrhotic liver with multiple nodular areas, better evaluated on recent CT. Ascites. Small amount of sludge is seen within the gallbladder. No discrete stones or evidence of biliary obstruction. Gallbladder wall is thickened which may be due to the patient's liver disease. D/ / Jeanne Adamson MD / Jeanne Adamson MD Interpreting Provider: Jeanne Adamson MD Consult Discharge Plan - Plan Referrals: Santana Howard MD [Primary Care Provider] - <Elise Brennan - Last Filed: 05/29/17 17:16> Date of Encounter: 05/29/17 Time of Encounter: 14:00 - Time Spent With Patient Total time spent is greater than 50% in coordination of care (as documented) at patient's floor/unit and/or counseling patient: - Constitutional Vitals: Temp Pulse Resp BP Pulse Ox 98.6 F 97 18 112/80 93 05/29/17 15:00 05/29/17 15:00 05/29/17 15:00 05/29/17 15:00 05/29/17 15:00 Results - Labs CBC & Chem 7: 05/28/17 03:22 05/28/17 03:22 Labs: Last Result Calcium 8.1 mg/dL (8.6-10.8) L 05/28/17 03:22 Ferritin 1236 ng/ml (5-204) H 05/28/17 12:29 Entire Visit Hgb 10.3 g/dL (11.5-15.4) L 05/28/17 03:22 Hct 31.2 % (35.3-44.9) L 05/28/17 03:22 PT 15.8 Seconds (9.4-12.1) H 05/26/17 22:39 Ferritin 1236 ng/ml (5-204) H 05/28/17 12:29 Total Bilirubin 3.9 mg/dL (0.2-1.2) H 05/28/17 03:22 AST 119 Units/L (5-34) H 05/28/17 03:22 ALT 28 Units/L (0-55) 05/28/17 03:22 Ammonia 29 mcmol/L (18-72) 05/27/17 03:16 - ABG ABG results: PT/INR, D-dimer PT 15.8 Seconds (9.4-12.1) H 05/26/17 22:39 - Attending Attestation I examined this patient and my medical decision-making was reviewed with the Resident Physician. I agree with the documented findings, disposition and treatment plan as described except to the extent set forth below.
[2017-05-29] MEDS ORDERED: Lactulose Oral Soln 20 GM/30 ML UDC PO PRN (11:37)
[2017-05-29 12:18] LABS: Hepatitis A Antibody IgM Nonreactive (Nonreactive); Hepatitis B Surface Antigen Nonreactive (Nonreactive); Hepatitis C Virus Antibody Nonreactive (Nonreactive)
[2017-05-29 12:54] LABS: Hepatitis B Core IgM Nonreactive (Nonreactive)
--- NOTE | 2017-05-29 13:07 | Palliative Progress Note ---
Date of Encounter: 05/29/17 Time of Encounter: 13:00 - Assessment and plan (1) Cancer associated pain Current Visit: Yes Status: Acute Assessment and plan: Improved today - Fentanyl patch was increased to 25 mcg yesterday, and receiving IV Morphine for breakthrough. Utilized x4 last 24 hours. MOnitor. Depending on results of MRI and plan going forward, hopefully can transition back to just po medication soon. (2) Cirrhosis Current Visit: Yes Status: Chronic Qualifiers: Hepatic cirrhosis type: unspecified hepatic cirrhosis Ascites presence: without ascites Qualified Code(s): K74.60 - Unspecified cirrhosis of liver (3) Constipation due to opioid therapy Current Visit: Yes Status: Acute Assessment and plan: + loose BM today. Continues on Lactulose. (4) Counseling regarding advanced care planning and goals of care Current Visit: Yes Status: Acute Assessment and plan: Awaiting further test results and oncology recommendations. Depending on MRI results, may benefit from palliative radiation, or may require ortho consultation. S-I-L did state that pt would now be going to her mother's home for care post discharge. Will continue to follow closely. (5) Metastatic breast cancer Current Visit: Yes Status: Chronic - Time Spent With Patient Total time spent is greater than 50% in coordination of care (as documented) at patient's floor/unit and/or counseling patient: 25 - 35 minutes - Subjective Interval history: Patient awake and alert. More comfortable today, still has pain when tries to move right leg. Transport here to take pt for MRI hip. Xray with possible lesion and fracture. Thoracic/Lumbar MRI results noted with lesions at T3, T4, T8, L2, L3, sacrum. S-I-L Eyad at bedside. - Constitutional Vitals: Abnormal lab results RBC 2.84 M/mcL (3.82-4.97) L 05/28/17 03:22 Hgb 10.3 g/dL (11.5-15.4) L 05/28/17 03:22 Hct 31.2 % (35.3-44.9) L 05/28/17 03:22 MCV 109.9 fL (83.0-100.0) H 05/28/17 03:22 MCH 36.3 pg (28.0-33.3) H 05/28/17 03:22 RDW 17.1 % (11.5-14.5) H 05/28/17 03:22 Plt Count 117 K/mcL (140-400) L 05/28/17 03:22 PT 15.8 Seconds (9.4-12.1) H 05/26/17 22:39 Glucose 100 mg/dL (70-99) H 05/28/17 03:22 Calcium 8.1 mg/dL (8.6-10.8) L 05/28/17 03:22 Ferritin 1236 ng/ml (5-204) H 05/28/17 12:29 Total Bilirubin 3.9 mg/dL (0.2-1.2) H 05/28/17 03:22 AST 119 Units/L (5-34) H 05/28/17 03:22 Alkaline Phosphatase 470 Units/L (38-126) H 05/28/17 03:22 Albumin 2.0 g/dL (3.5-5.0) L 05/28/17 03:22 Globulin 4.0 g/dL (2.4-3.5) H 05/28/17 03:22 Albumin/Globulin Ratio 0.5 (1.1-2.2) L 05/28/17 03:22 Urine Color [place] (Yellow) A 05/27/17 03:00 Urine Clarity Cloudy (Clear) A 05/27/17 03:00 Urine Ketones Trace mg/dL (Negative) H 05/27/17 03:00 Urine Nitrite Positive (Negative) A 05/27/17 03:00 Urine Bilirubin Moderate (Negative) H 05/27/17 03:00 Urine Urobilinogen 2.0 mg/dL (Normal) H 05/27/17 03:00 Ur Leukocyte Esterase Moderate (Negative) H 05/27/17 03:00 Urine Microscopic WBC TNTC per hpf (0-3) H 05/27/17 03:00 Urine Bacteria Many per hpf (None-Few) H 05/27/17 03:00 Ur Culture Indicated? YES (NO) A 05/27/17 03:00 General appearance: Present: no acute distress - Respiratory Respiratory exam: Present: decreased breath sounds, CTAB - Cardiovascular Cardiovascular exam: Present: +S1, +S2 - GI/Abdominal GI/Abdominal exam: Present: distended, normal bowel sounds, soft - Extremities Exam Additional comments: 3+ edema left lower ext, 2+ right lower ext. - Neurological Exam Neurological exam: Present: alert, oriented X3 Additional comments: Limited mobility of right extremity. - Skin Skin exam: Present: dry, warm Additional comments: Sallow color Palliative Quality Palliative Quality: Screen for Code Status: Yes, Screen for Goals of Care: Yes, Screen for Pain: Yes, If Pain Regimen Started, Initiate Bowel Regimen: Yes, Screen for Nausea/Vomitting: Yes - Labs CBC & Chem 7: 05/28/17 03:22 05/28/17 03:22 Labs: Laboratory Results - last 24 hr 05/28/17 05/28/17 12:29 12:29 Ferritin 1236 H Hepatitis A IgM Ab Nonreactive Hep Bs Antigen Nonreactive Hep B Core IgM Ab Nonreactive Hepatitis C Ab Screen Nonreactive - Impressions Impressions Hip X-Ray 05/28/17 13:42 IMPRESSION: Concern for subtle metastatic disease right mid femoral neck possible inferior medial femoral neck cortical fracture. Consider further evaluation with right hip MRI most importantly to evaluate for metastatic disease with possible subtle buckle fracture of the femoral neck scratched medially. The findings were sent to the Radiology Results Communication [facility] at 3:19 pm on 05/28/2017to be communicated to a licensed caregiver. D/ / Sancho Barker MD / Sancho Barker MD Interpreting Provider: Sancho Barker MD Lumbar Spine MRI 05/28/17 14:04 IMPRESSION: 1. Metastatic lesions are noted at L2, L3, left sacrum, and bilateral zack. 2. Severe central spinal canal narrowing at L3-L4, and L4-L5. 3. Left paracentral disc extrusion at L5-S1, with caudal migration of disc, displacing the left S1 nerve root in the lateral recess. Mild central spinal canal narrowing is noted at this level. D/ / 05/28/2017 20:00:18 Don Vu MD / Anabell Benavides Interpreting Provider: Don Vu MD Thoracic Spine MRI 05/28/17 14:04 IMPRESSION: 1. There are multifocal metastatic lesions noted in the thoracic spine, most pronounced at T3, T4, and T8. No pathologic fractures are identified. 2. Cirrhosis. 3. Small bilateral pleural effusions, left side greater than right. D/ / 05/28/2017 19:21:30 Don Vu MD / Anabell Benavides Interpreting Provider: Don Vu MD Liver Ultrasound 05/28/17 16:00 IMPRESSION: Cirrhotic liver with multiple nodular areas, better evaluated on recent CT. Ascites. Small amount of sludge is seen within the gallbladder. No discrete stones or evidence of biliary obstruction. Gallbladder wall is thickened which may be due to the patient's liver disease. D/ / Jeanne Adamson MD / Jeanne Adamson MD Interpreting Provider: Jeanne Adamson MD - ABG Interpretation ABG results: PT/INR, D-dimer PT 15.8 Seconds (9.4-12.1) H 05/26/17 22:39 Consult Discharge Plan - Plan Referrals: Santana Howard MD [Primary Care Provider] -
[2017-05-29] MEDS: *HR* FentaNYL PATCH 25 MCG PATCH TD SCH (15:15)
--- NOTE | 2017-05-29 15:49 | Internal Med Progress Note ---
Date of Encounter: 05/29/17 Time of Encounter: 09:25 - Assessment and plan (1) Fracture of femoral neck, right Current Visit: Yes Status: Suspected Assessment and plan: Right hip x-ray shows possible right infero-medial femoral neck fracture. Will get hip MRI per radiologist's recommendations. Pain control with narcotic medications per palliative care recommendations. Continue physical therapy. Qualifiers: Encounter type: initial encounter Fracture type: closed Qualified Code(s) : S72.001A - Fracture of unspecified part of neck of right femur, initial encounter for closed fracture (2) Metastatic breast cancer Current Visit: Yes Status: Chronic Assessment and plan: Oncology is following. MRI of the lumbar and thoracic spine shows multiple metastatic lesions involving lumbar spine with paracentral disc extrusion at L5- S1 with caudal migration of disc displacing the left S1 nerve root. Orthopedics has been consulted. Continue supportive care and pain control. 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 Palliative care managing. High risk for complications due to use of intravenous narcotic may medications Qualifiers: Chronic pain type: chronic pain syndrome Qualified Code(s): G89.4 - Chronic pain syndrome (5) Altered mental status Current Visit: Yes Status: Resolved Assessment and plan: This has now resolved. Likely related to narcotic medication use. Qualifiers: Altered mental status type: somnolence Qualified Code(s): R40.0 - Somnolence (6) Cirrhosis Current Visit: Yes Status: Chronic Assessment and plan: Liver ultrasound shows cirrhotic liver with multiple nodular areas with small amount of sludge in the gallbladder. Gastroenterology following. Unable to determine if abnormal liver function tests related to cirrhosis or from treatment of cancer. We will continue supportive care. Place patient on thiamine and folic acid. Qualifiers: Hepatic cirrhosis type: unspecified hepatic cirrhosis Ascites presence: without ascites Qualified Code(s): K74.60 - Unspecified cirrhosis of liver (7) Depression Current Visit: Yes Status: Chronic Assessment and plan: Continue amitriptyline Qualifiers: Depression Type: major depressive disorder Major depression recurrence: recurrent Active/Remission status: in partial remission Qualified Code(s): F33.41 - Major depressive disorder, recurrent, in partial remission (8) Lower extremity edema Current Visit: Yes Status: Acute Assessment and plan: On oral Lasix. Stop IV fluids. (9) UTI (urinary tract infection) Current Visit: Yes Status: Acute Assessment and plan: Urine culture positive for Klebsiella pneumoniae. Pansensitive. Patient is receiving Rocephin. Qualifiers: Urinary tract infection type: acute cystitis Hematuria presence: without hematuria Qualified Code(s): N30.00 - Acute cystitis without hematuria (10) DVT prophylaxis Current Visit: Yes Status: Acute Assessment and plan: With subcutaneous Lovenox - Subjective Interval history: Patient continues to have significant right hip pain and low back pain although these are better controlled with her current narcotic pain medication regimen. Denies any bowel or bladder incontinence. No nausea or vomiting. Tolerating diet well. No focal weakness or numbness reported. - Constitutional Vitals: Temp Pulse Resp BP Pulse Ox 98.6 F 97 18 112/80 93 05/29/17 15:00 05/29/17 15:00 05/29/17 15:00 05/29/17 15:00 05/29/17 15:00 General appearance: Present: mild distress, A&O X 3, pleasant, answers questions appropriately - Neck Neck exam general surgery: Present: supple, trachea midline. Absent: lymphadenopathy - Respiratory Respiratory exam: Present: CTAB. Absent: accessory muscle use, rales, rhonchi, wheezes - Cardiovascular Cardiovascular exam: Present: RRR, +S1, +S2. Absent: diastolic murmur, gallop, rubs, systolic murmur - GI/Abdominal GI/Abdominal exam: Present: normal bowel sounds, soft, no peritoneal signs. Absent: distended, tenderness - Extremities Exam Extremities exam: Present: tenderness (In the right hip region), warm, radial pulses palpable and symmetrical. Absent: calf tenderness, cyanotic, pedal edema - Neurological Exam Neurological exam: Present: alert, oriented X3, no focal deficits, strengths equal and symetr throughout. Absent: facial droop, speech deficit Internal Medicine: Result - Labs CBC & Chem 7: 05/28/17 03:22 05/28/17 03:22 - ABG Interpretation ABG results: PT/INR, D-dimer PT 15.8 Seconds (9.4-12.1) H 05/26/17 22:39 Consult Discharge Plan - Plan Referrals: Santana Howard MD [Primary Care Provider] -
--- NOTE | 2017-05-29 18:05 | Orthopedic Consult Note ---
Date of Encounter: 05/29/17 Time of Encounter: 16:15 Assessment and Plan (1) Fracture of femoral neck, right Current Visit: Yes Status: Suspected Right hip MRI shows multifocal pelvic metastatic lesions with right femoral neck lesion consistent with pathologic fracture. Based on this fracture would recommend right hip IM nailing. Discussed the procedure with the patient along with r/b/a including the increased risk of nonunion/malunion due to known bony lesions. Discussed surgery should help decrease the pain she is having in her hip and allow her to be WBAT. Patient would like to discuss options with family and did not give consent to surgery at this time. Palliative care is following. Continue pain control per hospitalist/palliative care. Will check on patient tomorrow for further discussion as needed. Qualifiers: Encounter type: initial encounter Fracture type: closed Qualified Code(s) : S72.001A - Fracture of unspecified part of neck of right femur, initial encounter for closed fracture History of Present Illness Chief complaint: right hip pain HPI: Ms. Crystal is a 67 year old female with h/o metastatic breast cancer that has metastasized to liver and several bony areas. She has had right hip pain that started about 1 week ago with no known injury. Until then she was ambulating well. Her pain is intermittent aching and radiated to knee, becomes sharp and worse with motion. She has chronic neuropathy from chemotherapy treatments which she recently stopped due to quality of life. Currently no chest pain, SOB , fevers. Past Med Surg Social Fam HX - Past Medical History Medical history: cancer (metastatic breast with liver and osseous metastasis), cirrhosis (possible ), DVT Psychiatric history: depression - Past Surgical History Surgical History: hysterectomy, orthopedic, other - Social History Smoking Status: Never smoker Smokeless Tobacco Status: No Alcohol use: none Drug use: none - Family History Mother Living Status: Cause of : cervical cancer Father Living Status: Cause of : liver Medications and Allergies Prochlorperazine Maleate [Compazine] 10 mg PO Q6HR PRN #30 tablet 08/03/16 [Rx] Cholecalciferol (Vitamin D3) [Vitamin D] 50,000 unit PO QWEEK 11/15/16 [History] Furosemide [Lasix] 20 mg PO DAILY 11/15/16 [History] Amitriptyline HCl 75 mg PO HS #30 tablet 11/30/16 [Rx] Omeprazole [PriLOSEC] 20 mg PO DAILY #30 capsule 01/09/17 [Rx] Sennosides [Senna] 2 tab PO HS #60 tablet 02/12/17 [Rx] FentaNYL PATCH [Duragesic] 12 mcg TD Q72H #10 patch.td72 05/13/17 [Rx] Morphine Immed Rel [Morphine Sulfate] 15 mg PO Q2-4H PRN #90 tab 05/13/17 [Rx] LORazepam [Ativan] 1 mg PO DAILY 05/27/17 [History] Allergies paper tape Adverse Reaction (Unknown, Uncoded 05/23/17 15:58) Unknown All Systems Reviewed: A 10-system review of systems was performed and is negative for pertinent findings except as documented above in the HPI. - Constitutional Constitutional: as per HPI - Cardiovascular Cardiovascular: as per HPI - Respiratory Respiratory: as per HPI - Musculoskeletal Musculoskeletal: as per HPI Physical Exam - Constitutional Vitals: Temp Pulse Resp BP Pulse Ox 98.6 F 97 18 112/80 93 05/29/17 15:00 05/29/17 15:00 05/29/17 15:00 05/29/17 15:00 05/29/17 15:00 General appearance IM: cooperative, A&O X 3, no acute distress, answers questions appropriately - Hip right Tenderness with palpation: lateral (No open wounds or lesions to right hip, leg is not shortened or rotated. Tenderness to palpation along lateral hip. ROM of hip restricted due to fracture, good dorsiflexion of foot. no calf tenderness to palpation. grossly NV intact.) Results - Labs Result Diagrams: 05/28/17 03:22 05/28/17 03:22 Labs: Abnormal lab results RBC 2.84 M/mcL (3.82-4.97) L 05/28/17 03:22 Hgb 10.3 g/dL (11.5-15.4) L 05/28/17 03:22 Hct 31.2 % (35.3-44.9) L 05/28/17 03:22 MCV 109.9 fL (83.0-100.0) H 05/28/17 03:22 MCH 36.3 pg (28.0-33.3) H 05/28/17 03:22 RDW 17.1 % (11.5-14.5) H 05/28/17 03:22 Plt Count 117 K/mcL (140-400) L 05/28/17 03:22 PT 15.8 Seconds (9.4-12.1) H 05/26/17 22:39 Glucose 100 mg/dL (70-99) H 05/28/17 03:22 Calcium 8.1 mg/dL (8.6-10.8) L 05/28/17 03:22 Ferritin 1236 ng/ml (5-204) H 05/28/17 12:29 Total Bilirubin 3.9 mg/dL (0.2-1.2) H 05/28/17 03:22 AST 119 Units/L (5-34) H 05/28/17 03:22 Alkaline Phosphatase 470 Units/L (38-126) H 05/28/17 03:22 Albumin 2.0 g/dL (3.5-5.0) L 05/28/17 03:22 Globulin 4.0 g/dL (2.4-3.5) H 05/28/17 03:22 Albumin/Globulin Ratio 0.5 (1.1-2.2) L 05/28/17 03:22 Urine Color [place] (Yellow) A 05/27/17 03:00 Urine Clarity Cloudy (Clear) A 05/27/17 03:00 Urine Ketones Trace mg/dL (Negative) H 05/27/17 03:00 Urine Nitrite Positive (Negative) A 05/27/17 03:00 Urine Bilirubin Moderate (Negative) H 05/27/17 03:00 Urine Urobilinogen 2.0 mg/dL (Normal) H 05/27/17 03:00 Ur Leukocyte Esterase Moderate (Negative) H 05/27/17 03:00 Urine Microscopic WBC TNTC per hpf (0-3) H 05/27/17 03:00 Urine Bacteria Many per hpf (None-Few) H 05/27/17 03:00 Ur Culture Indicated? YES (NO) A 05/27/17 03:00 All other labs normal. - Diagnostic results Hip x-ray: report reviewed, image reviewed Hip MRI: report reviewed, image reviewed Consult Discharge Plan - Plan Referrals: Santana Howard MD [Primary Care Provider] - - Attending Attestation Case and plan of care discussed with supervising physician who was available for all aspects of care.
[2017-05-29] MEDS ORDERED: *HR* LORazepam 1 MG TABLET PO PRN (22:35)
[2017-05-30] MEDS: *HR* Enoxaparin 40 MG/0.4 ML SYRINGE SQ SCH (05:43)
[2017-05-30 05:45] LABS: Basophils % 0.1 %; Hematocrit 32.8 % (35.3-44.9); Immature Granulocytes % 0.5 % (0-4); Lymphocytes # 0.9 K/mcL (0.6-4.6); Lymphocytes % 11.1 %; Mean Corpuscular HGB Conc 33.5 g/dL (31.6-35.5); Mean Corpuscular Hemoglobin 35.5 pg (28.0-33.3); Mean Corpuscular Volume 105.8 fL (83.0-100.0); Mean Platelet Volume 10.7 fL (9.4-12.4); Monocytes # 0.4 K/mcL (0.0-1.3); Monocytes % 4.8 %; Platelet Count 150 K/mcL (140-400); Red Cell Distribution Width 16.7 % (11.5-14.5); Segmented Neutrophils % 83.5 %
[2017-05-30 06:00] LABS: BUN/Creatinine Ratio 17 (6-26); Blood Urea Nitrogen 14 mg/dL (7-20); Calcium 8.5 mg/dL (8.6-10.8); Carbon Dioxide 25 mEq/L (19-29); Chloride 106 mEq/L (98-109); Glucose 155 mg/dL (70-99); INR 1.3; Osmolality,Calculated 290 (280-300); Potassium 3.6 mEq/L (3.5-4.5); Prothrombin Time 14.4 Seconds (9.4-12.1); Sodium 138 mEq/L (136-145); eGFR For African Americans > 60 (> 60); eGFR For Non-African Americans > 60 (> 60)
[2017-05-30] MEDS: Furosemide 20 MG TABLET PO SCH (08:56)
[2017-05-30] MEDS: *HR* Morphine 2 MG/ML SYRINGE IVP PRN ×2 (08:56→15:49)
--- NOTE | 2017-05-30 10:59 | Palliative Progress Note ---
Date of Encounter: 05/30/17 Time of Encounter: 10:50 - Assessment and plan (1) Cancer associated pain Current Visit: Yes Status: Acute Assessment and plan: Continue current regimen with Fentanyl patch 25mcg/Morphine po/IV. Has required less IV medication for breakthrough. Could likely tolerate po pain meds, but will wait and see if she decides to proceed with surgery. (2) Cirrhosis Current Visit: Yes Status: Chronic Qualifiers: Hepatic cirrhosis type: unspecified hepatic cirrhosis Ascites presence: without ascites Qualified Code(s): K74.60 - Unspecified cirrhosis of liver (3) Constipation due to opioid therapy Current Visit: Yes Status: Acute Assessment and plan: + BM's. She has been refusing some doses of Lactulose (4) Counseling regarding advanced care planning and goals of care Current Visit: Yes Status: Acute Assessment and plan: POA at bedside. They are discussing and will be deciding on surgery. Discussed that she would need rehab after surgery and discussed some local options. Will continue to follow closely. (5) Metastatic breast cancer Current Visit: Yes Status: Chronic - Time Spent With Patient Total time spent is greater than 50% in coordination of care (as documented) at patient's floor/unit and/or counseling patient: 25 - 35 minutes - Subjective Interval history: Patient drowsy at present after receiving pain medication. Son, sister n law ( POA) and granddaughter at bedside. Ortho offering surgery to pt for rt femur fx. Nia Vega NP Oncology in to discuss. Patient pain controlled well at present - still has pain with rt leg movement, which is expected. Increasing edema to bilateral lower extremities. - Constitutional Vitals: Abnormal lab results RBC 3.10 M/mcL (3.82-4.97) L 05/30/17 04:52 Hgb 11.0 g/dL (11.5-15.4) L 05/30/17 04:52 Hct 32.8 % (35.3-44.9) L 05/30/17 04:52 MCV 105.8 fL (83.0-100.0) H 05/30/17 04:52 MCH 35.5 pg (28.0-33.3) H 05/30/17 04:52 RDW 16.7 % (11.5-14.5) H 05/30/17 04:52 PT 14.4 Seconds (9.4-12.1) H 05/30/17 04:52 Glucose 155 mg/dL (70-99) H 05/30/17 04:52 Calcium 8.5 mg/dL (8.6-10.8) L 05/30/17 04:52 Ferritin 1236 ng/ml (5-204) H 05/28/17 12:29 Total Bilirubin 3.9 mg/dL (0.2-1.2) H 05/28/17 03:22 AST 119 Units/L (5-34) H 05/28/17 03:22 Alkaline Phosphatase 470 Units/L (38-126) H 05/28/17 03:22 Albumin 2.0 g/dL (3.5-5.0) L 05/28/17 03:22 Globulin 4.0 g/dL (2.4-3.5) H 05/28/17 03:22 Albumin/Globulin Ratio 0.5 (1.1-2.2) L 05/28/17 03:22 Urine Color [place] (Yellow) A 05/27/17 03:00 Urine Clarity Cloudy (Clear) A 05/27/17 03:00 Urine Ketones Trace mg/dL (Negative) H 05/27/17 03:00 Urine Nitrite Positive (Negative) A 05/27/17 03:00 Urine Bilirubin Moderate (Negative) H 05/27/17 03:00 Urine Urobilinogen 2.0 mg/dL (Normal) H 05/27/17 03:00 Ur Leukocyte Esterase Moderate (Negative) H 05/27/17 03:00 Urine Microscopic WBC TNTC per hpf (0-3) H 05/27/17 03:00 Urine Bacteria Many per hpf (None-Few) H 05/27/17 03:00 Ur Culture Indicated? YES (NO) A 05/27/17 03:00 General appearance: Present: no acute distress - Respiratory Respiratory exam: Present: decreased breath sounds, CTAB - Cardiovascular Cardiovascular exam: Present: +S1, +S2 - GI/Abdominal GI/Abdominal exam: Present: distended, normal bowel sounds, soft - Additional comments: [place] with [place] colored urine - Extremities Exam Additional comments: 3+ edema bilateral lower extremities. - Neurological Exam Neurological exam: Present: alert, oriented X3, strengths equal and symetr throughout Additional comments: Follows commands. Rt leg movement limited r/t pain. Drowsy after pain medication - falling asleep during conversation - Skin Skin exam: Present: dry, warm Palliative Quality Palliative Quality: Screen for Code Status: Yes, Screen for Goals of Care: Yes, Screen for Pain: Yes, If Pain Regimen Started, Initiate Bowel Regimen: Yes, Screen for Nausea/Vomitting: Yes - Labs CBC & Chem 7: 05/30/17 04:52 05/30/17 04:52 Labs: Laboratory Results - last 24 hr 05/30/17 05/30/17 05/30/17 04:52 04:52 04:52 WBC 8.4 RBC 3.10 L Hgb 11.0 L Hct 32.8 L MCV 105.8 H MCH 35.5 H MCHC 33.5 RDW 16.7 H Plt Count 150 MPV 10.7 Immature Gran % 0.5 Seg Neutrophils % 83.5 Lymphocytes % 11.1 Monocytes % 4.8 Eosinophils % 0.0 Basophils % 0.1 Neutrophils # 7.0 Lymphocytes # 0.9 Monocytes # 0.4 Eosinophils # 0.0 Basophils # 0.0 PT 14.4 H INR 1.3 Sodium 138 Potassium 3.6 Chloride 106 Carbon Dioxide 25 BUN 14 Creatinine 0.81 Est GFR ( Amer) > 60 Est GFR (Non-Af Amer) > 60 BUN/Creatinine Ratio 17 Glucose 155 H Calculated Osmolality 290 Calcium 8.5 L - ABG Interpretation ABG results: PT/INR, D-dimer PT 14.4 Seconds (9.4-12.1) H 05/30/17 04:52 Consult Discharge Plan - Plan Referrals: Santana Howard MD [Primary Care Provider] -
--- NOTE | 2017-05-30 11:43 | Oncology Inp Progress Note ---
<Taylor Vega E - Last Filed: 05/30/17 11:37> Date of Encounter: 05/30/17 Time of Encounter: 09:05 (1) Right leg pain Current Visit: Yes Status: Acute Assessment and plan: Pain and weakness in R leg with some discomfort in lumbar spine. Spoke with hospitalist regarding obtaining MRI of thoracic and lumbar spine for further evaluation of this severe pain. Spoke with Radiation oncologist, Dr. Erazo who will see patient regarding palliative radiation if needed. (2) Lower extremity edema Current Visit: Yes Status: Acute Assessment and plan: Doppler negative, could be associated with cirrhosis (3) UTI (urinary tract infection) Current Visit: Yes Status: Acute Assessment and plan: Culture indicates gram - nichole -sensitivity pending is on Rocephen. Qualifiers: Urinary tract infection type: acute cystitis Hematuria presence: without hematuria Qualified Code(s): N30.00 - Acute cystitis without hematuria (4) Metastatic breast cancer Current Visit: Yes Status: Chronic Assessment and plan: Xeloda discontinued on 05/13/[address] Sam awaiting consult with GI regarding cirrhosis prior to further recommendation for treatment. Patient unsure if she wants to continue active treatment. (5) Fracture of femoral neck, right Current Visit: Yes Status: Suspected Assessment and plan: See subjective note Qualifiers: Encounter type: initial encounter Fracture type: closed Qualified Code(s) : S72.001A - Fracture of unspecified part of neck of right femur, initial encounter for closed fracture Oncology: Subj Interval history: Patient seen and examined at bedside. She is very drowsy just had pain medication. Her family is present. We discussed recent scans and our recommendation. Explained that cast was reviewed at tumor board and with Radiation oncologist. Our recommendation is that she have orthopedic repair (pinning) if she wishes to be able to ambulate. Patient is not sure if she wants to continue chemotherapy treatment, she may opt for hospice but she has to make decision about having surgery to both help decrease pain in R hip and to allow ambulation. Radiation could be given in future she will need f/u with Radiation oncology after discharge. - Constitutional Vitals: Vital Signs Temp Pulse Resp BP Pulse Ox 05/30/17 10:28 97.7 F 89 16 125/84 92 05/30/17 07:00 98.3 F 88 16 133/88 91 05/30/17 04:30 98.2 F 99 17 107/72 96 05/29/17 22:50 98.4 F 89 18 112/62 96 05/29/17 21:07 98.7 F 87 15 124/83 93 05/29/17 15:00 98.6 F 97 18 112/80 93 Intake and Output 05/29/17 05/30/17 05/30/17 23:59 07:59 15:59 Intake Total 0 / 0 340 / 340 Output Total 0 / 0 200 / 200 250 / 250 Balance 90 / -200 / -200 Intake: IV Fluids 100 / 100 Rocephin 1,000 MG In 100 / 100 Dextrose 5% (Minibag+) 100 ML 100 ML @ 200 mls/ hr IVPB DAILY [facility] Rx#: [id number] Oral 0 / 0 240 / 240 Output: Urine 0 / 0 200 / 200 250 / 250 Other: Meal Dinner Breakfast Percent of Meal Consumed 25% 75% Stool Size Small Stool Consistency loose Stool Characteristics Normal for Patient Stool Color Brown # Bowel Movements 1 Weight 88.9 kg Patient Weight 05/30/17 23:59 Weight 88.9 kg Oncology: Obj Data - Labs CBC & Chem 7: 05/30/17 04:52 05/30/17 04:52 Labs: Laboratory Results - last 24 hr 05/30/17 05/30/17 05/30/17 04:52 04:52 04:52 WBC 8.4 RBC 3.10 L Hgb 11.0 L Hct 32.8 L MCV 105.8 H MCH 35.5 H MCHC 33.5 RDW 16.7 H Plt Count 150 MPV 10.7 Immature Gran % 0.5 Seg Neutrophils % 83.5 Lymphocytes % 11.1 Monocytes % 4.8 Eosinophils % 0.0 Basophils % 0.1 Neutrophils # 7.0 Lymphocytes # 0.9 Monocytes # 0.4 Eosinophils # 0.0 Basophils # 0.0 PT 14.4 H INR 1.3 Sodium 138 Potassium 3.6 Chloride 106 Carbon Dioxide 25 BUN 14 Creatinine 0.81 Est GFR ( Amer) > 60 Est GFR (Non-Af Amer) > 60 BUN/Creatinine Ratio 17 Glucose 155 H Calculated Osmolality 290 Calcium 8.5 L - Imaging and cardiology Other Images Status: image reviewed by me Additional comments: MRI HIP 1. Multifocal pelvic metastatic lesions. Non expansile right femoral neck metastatic lesion with partial cortical destruction consistent with impending pathologic fracture. 2. Mild bilateral hip effusions more prominent on the right. 3. Moderate ascites and diffuse superficial and deep soft tissue edema. - ABG Interpretation ABG results: PT/INR, D-dimer PT 14.4 Seconds (9.4-12.1) H 05/30/17 04:52 Consult Discharge Plan - Plan Referrals: Santana Howard MD [Primary Care Provider] - Jose Sam MD [Partnered Physician] - 06/06/17 9:00 am (Follow up appt at [facility] for chemo) <Master Ding - Last Filed: 05/30/17 18:42> Date of Encounter: 05/30/17 Oncology: Subj Interval history: X ray, MRI hip reviewed plan discussed in tumor board. Detailed discussed yesterday with sister-in law/family about plan. I examined this patient and my medical decision-making was reviewed with the Advanced Practice Nurse. I agree with the documented findings, disposition and treatment plan as described above by Taylor Vega CNP - Constitutional Vitals: Vital Signs Temp Pulse Resp BP Pulse Ox 05/30/17 15:27 98.0 F 95 14 120/75 96 05/30/17 10:28 97.7 F 89 16 125/84 92 05/30/17 07:00 98.3 F 88 16 133/88 91 05/30/17 04:30 98.2 F 99 17 107/72 96 05/29/17 22:50 98.4 F 89 18 112/62 96 05/29/17 21:07 98.7 F 87 15 124/83 93 Intake and Output 05/30/17 05/30/17 05/30/17 07:59 15:59 23:59 Intake Total 0 / 0 340 / 340 0 / 0 Output Total 200 / 200 250 / 250 Balance -200 / -200 90 / 90 0 / 0 Intake: IV Fluids 100 / 100 Rocephin 1,000 MG In 100 / 100 Dextrose 5% (Minibag+) 100 ML 100 ML @ 200 mls/ hr IVPB DAILY [facility] Rx#: [id number] Oral 0 / 0 240 / 240 0 / 0 Output: Urine 200 / 200 250 / 250 Other: Meal Lunch NPO Percent of Meal Consumed 25% 0% Weight 88.9 kg Blood Glucose* 135 Patient Weight 05/30/17 23:59 Weight 88.9 kg Oncology: Obj Data - Labs CBC & Chem 7: 05/30/17 04:52 05/30/17 04:52 Labs: Laboratory Results - last 24 hr 05/30/17 05/30/17 05/30/17 04:52 04:52 04:52 WBC 8.4 RBC 3.10 L Hgb 11.0 L Hct 32.8 L MCV 105.8 H MCH 35.5 H MCHC 33.5 RDW 16.7 H Plt Count 150 MPV 10.7 Immature Gran % 0.5 Seg Neutrophils % 83.5 Lymphocytes % 11.1 Monocytes % 4.8 Eosinophils % 0.0 Basophils % 0.1 Neutrophils # 7.0 Lymphocytes # 0.9 Monocytes # 0.4 Eosinophils # 0.0 Basophils # 0.0 PT 14.4 H INR 1.3 Sodium 138 Potassium 3.6 Chloride 106 Carbon Dioxide 25 BUN 14 Creatinine 0.81 Est GFR ( Amer) > 60 Est GFR (Non-Af Amer) > 60 BUN/Creatinine Ratio 17 Glucose 155 H POC Glucose Calculated Osmolality 290 Calcium 8.5 L 05/30/17 17:01 WBC RBC Hgb Hct MCV MCH MCHC RDW Plt Count MPV Immature Gran % Seg Neutrophils % Lymphocytes % Monocytes % Eosinophils % Basophils % Neutrophils # Lymphocytes # Monocytes # Eosinophils # Basophils # PT INR Sodium Potassium Chloride Carbon Dioxide BUN Creatinine Est GFR ( Amer) Est GFR (Non-Af Amer) BUN/Creatinine Ratio Glucose POC Glucose 135 H Calculated Osmolality Calcium - Impressions Impressions Chest X-Ray 05/30/17 15:24 IMPRESSION: No evidence of acute cardiopulmonary disease. D/ / Olaf Sawyer MD / Olaf Sawyer MD Interpreting Provider: Olaf Sawyer MD - ABG Interpretation ABG results: PT/INR, D-dimer PT 14.4 Seconds (9.4-12.1) H 05/30/17 04:52
[2017-05-30 13:20] LABS: AFP Tumor Marker Non-Pregnant 6 ng/mL (0-9); Alpha-1-Antitrypsin 197 mg/dL (90-200); Ceruloplasmin 33 mg/dL (17-54); F-Actin (sm muscle) Ab IgG 14 Units (0-19)
--- NOTE | 2017-05-30 13:41 | Orthopedics Progress Note ---
Date of Encounter: 05/30/17 Time of Encounter: 12:55 - Assessment and Plan (1) Fracture of femoral neck, right Current Visit: Yes Status: Suspected Discussed again the procedure with the patient along with r/b/a including the increased risk of nonunion/malunion due to known bony lesions. Tumor board also reviewed the case and recommends surgery. Patient states she has discussed options with family and would like to proceed with surgery. Consent obtained and placed in chart. Continue pain control per hospitalist/palliative care. NPO after midnight tonight. Qualifiers: Encounter type: initial encounter Fracture type: closed Qualified Code(s) : S72.001A - Fracture of unspecified part of neck of right femur, initial encounter for closed fracture Subjective Principal diagnosis: right hip fracture Interval history: Patient feeling well today, pain tolerable with medication. Denies any new pains. States she would like to proceed with surgery. Objective Vital signs: Vital Signs Temp Pulse Resp BP Pulse Ox 05/30/17 10:28 97.7 F 89 16 125/84 92 05/30/17 07:00 98.3 F 88 16 133/88 91 05/30/17 04:30 98.2 F 99 17 107/72 96 05/29/17 22:50 98.4 F 89 18 112/62 96 05/29/17 21:07 98.7 F 87 15 124/83 93 05/29/17 15:00 98.6 F 97 18 112/80 93 Intake and Output 05/29/17 05/30/17 05/30/17 23:59 07:59 15:59 Intake Total 90 / 90 0 / 0 340 / 340 Output Total 0 / 0 200 / 200 250 / 250 Balance 90 / 90 -200 / -200 90 / 90 Intake: IV Fluids 100 / 100 Rocephin 1,000 MG In 100 / 100 Dextrose 5% (Minibag+) 100 ML 100 ML @ 200 mls/ hr IVPB DAILY [facility] Rx#: [id number] Oral 90 / 90 0 / 0 240 / 240 Output: Urine 0 / 0 200 / 200 250 / 250 Other: Meal Dinner Lunch Percent of Meal Consumed 25% 25% Stool Size Small Stool Consistency loose Stool Characteristics Normal for Patient Stool Color Brown # Bowel Movements 1 Weight 88.9 kg Patient Weight 05/30/17 23:59 Weight 88.9 kg - Labs CBC & BMP: 05/30/17 04:52 05/30/17 04:52 Labs: Abnormal lab results RBC 3.10 M/mcL (3.82-4.97) L 05/30/17 04:52 Hgb 11.0 g/dL (11.5-15.4) L 05/30/17 04:52 Hct 32.8 % (35.3-44.9) L 05/30/17 04:52 MCV 105.8 fL (83.0-100.0) H 05/30/17 04:52 MCH 35.5 pg (28.0-33.3) H 05/30/17 04:52 RDW 16.7 % (11.5-14.5) H 05/30/17 04:52 PT 14.4 Seconds (9.4-12.1) H 05/30/17 04:52 Glucose 155 mg/dL (70-99) H 05/30/17 04:52 Calcium 8.5 mg/dL (8.6-10.8) L 05/30/17 04:52 Ferritin 1236 ng/ml (5-204) H 05/28/17 12:29 Total Bilirubin 3.9 mg/dL (0.2-1.2) H 05/28/17 03:22 AST 119 Units/L (5-34) H 05/28/17 03:22 Alkaline Phosphatase 470 Units/L (38-126) H 05/28/17 03:22 Albumin 2.0 g/dL (3.5-5.0) L 05/28/17 03:22 Globulin 4.0 g/dL (2.4-3.5) H 05/28/17 03:22 Albumin/Globulin Ratio 0.5 (1.1-2.2) L 05/28/17 03:22 Urine Color [place] (Yellow) A 05/27/17 03:00 Urine Clarity Cloudy (Clear) A 05/27/17 03:00 Urine Ketones Trace mg/dL (Negative) H 05/27/17 03:00 Urine Nitrite Positive (Negative) A 05/27/17 03:00 Urine Bilirubin Moderate (Negative) H 05/27/17 03:00 Urine Urobilinogen 2.0 mg/dL (Normal) H 05/27/17 03:00 Ur Leukocyte Esterase Moderate (Negative) H 05/27/17 03:00 Urine Microscopic WBC TNTC per hpf (0-3) H 05/27/17 03:00 Urine Bacteria Many per hpf (None-Few) H 05/27/17 03:00 Ur Culture Indicated? YES (NO) A 05/27/17 03:00 Consult Discharge Plan - Plan Referrals: Santana Howard MD [Primary Care Provider] -
--- NOTE | 2017-05-30 14:59 | Internal Med Progress Note ---
Date of Encounter: 05/30/17 Time of Encounter: 09:45 - Assessment and plan (1) Fracture of femoral neck, right Current Visit: Yes Status: Suspected Assessment and plan: Patient evaluated by orthopedics. Does appear to have pathologic fracture of the femoral neck. Recommend surgery for per orthopedics with intramedullary nailing. At this time, patient would benefit from this procedure despite the risks of nonhealing due to underlying metastatic lesions requiring targeted radiotherapy for management. Patient also wants to have better quality of life and surgery would be able to offer that to her. Discussed this with the patient and she we will discuss it further with her family and decide today. We will get 2-D echocardiogram and chest x-ray for preoperative evaluation. Patient does not have any shortness of breath or known cardiac issues. Qualifiers: Encounter type: initial encounter Fracture type: closed Qualified Code(s) : S72.001A - Fracture of unspecified part of neck of right femur, initial encounter for closed fracture (2) Metastatic breast cancer Current Visit: Yes Status: Chronic Assessment and plan: Continue supportive care and treat underlying cancer related pain. Patient will need targeted radiation therapy for metastatic lesions to spine and pelvis. Metastatic lesions to thoracic and lumbar spine. On Decadron (3) Chronic pain Current Visit: Yes Status: Acute Assessment and plan: Cancer related pain. Continue management per palliative care. 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 Continue folic acid and thiamine Qualifiers: Hepatic cirrhosis type: unspecified hepatic cirrhosis Ascites presence: without ascites Qualified Code(s): K74.60 - Unspecified cirrhosis of liver (7) Depression Current Visit: Yes Status: Chronic Assessment and plan: Continue amitriptyline Qualifiers: Depression Type: major depressive disorder Major depression recurrence: recurrent Active/Remission status: in partial remission Qualified Code(s): F33.41 - Major depressive disorder, recurrent, in partial remission (8) Lower extremity edema Current Visit: Yes Status: Acute Assessment and plan: This is worse today. We will give extra dose of Lasix intravenously. (9) UTI (urinary tract infection) Current Visit: Yes Status: Acute Assessment and plan: With Klebsiella pneumoniae. Continue ceftriaxone. Qualifiers: Urinary tract infection type: acute cystitis Hematuria presence: without hematuria Qualified Code(s): N30.00 - Acute cystitis without hematuria (10) DVT prophylaxis Current Visit: Yes Status: Acute Assessment and plan: On subcutaneous Lovenox - Subjective Interval history: Patient feels that the pain in her right hip is slightly improved compared to yesterday and patient is able to move her hip a little more. Continues to require intravenous narcotic medications for breakthrough pain. Was recommended surgery for right hip pathologic fracture by orthopedics. Patient and family considering this and have not yet made a decision about it. Tolerating diet well. - Constitutional Vitals: Temp Pulse Resp BP Pulse Ox 97.7 F 89 16 125/84 92 05/30/17 10:28 05/30/17 10:28 05/30/17 10:28 05/30/17 10:28 05/30/17 10:28 General appearance: Present: mild distress, A&O X 3, pleasant, answers questions appropriately - Respiratory Respiratory exam: Present: CTAB. Absent: accessory muscle use, rales, rhonchi, wheezes - Cardiovascular Cardiovascular exam: Present: RRR, +S1, +S2. Absent: diastolic murmur, gallop, rubs, systolic murmur - GI/Abdominal GI/Abdominal exam: Present: normal bowel sounds, soft, no peritoneal signs. Absent: distended, tenderness - Extremities Exam Extremities exam: Present: tenderness (Tenderness in the right hip), warm, radial pulses palpable and symmetrical. Absent: calf tenderness, cyanotic, pedal edema - Neurological Exam Neurological exam: Present: alert, oriented X3, no focal deficits. Absent: facial droop, speech deficit - Skin Skin exam: Present: dry, intact Internal Medicine: Result - Labs CBC & Chem 7: 05/30/17 04:52 05/30/17 04:52 Labs: Short CBC 05/30/17 Range/Units 04:52 WBC 8.4 (4.3-11.1) K/mcL Hgb 11.0 L (11.5-15.4) g/dL Hct 32.8 L (35.3-44.9) % Plt Count 150 (140-400) K/mcL Neutrophils # 7.0 (1.6-8.9) K/mcL BMP 05/30/17 04:52 Sodium 138 Potassium 3.6 Chloride 106 Carbon Dioxide 25 BUN 14 Creatinine 0.81 Glucose 155 H Calcium 8.5 L - ABG Interpretation ABG results: PT/INR, D-dimer PT 14.4 Seconds (9.4-12.1) H 05/30/17 04:52 Consult Discharge Plan - Plan Referrals: Santana Howard MD [Primary Care Provider] - Jose Sam MD [Partnered Physician] - 06/06/17 9:00 am (Follow up appt at cancer center for chemo)
[2017-05-30] MEDS ORDERED: Furosemide 40 MG/4 ML VIAL IVP ONE (15:10)
[2017-05-30] MEDS: Folic Acid 1 MG TABLET PO SCH (15:49)
[2017-05-30] MEDS: Thiamine (B-1) 100 MG TABLET PO SCH (15:49)
--- NOTE | 2017-05-30 19:14 | Anesthesia Evaluation PreOp ---
Date of Encounter: 05/30/17 Time of Encounter: 18:45 - Past History Planned Operation: Rt Hip TFN Cardiac History: HTN, Hyperlipidemia Pulmonary History: Denies Any Significant HX [employer] History: Denies Any Significant HX Other Medical History: Hepatic (Cirrhosis), Renal (CKD stage 3), GERD, Other ( Breast Cancer s/p Mastectomy) Anesthesia History: No Prior Anesthetic Complications : No Alcohol Use: none Drug use: none Medications and Allergies Prochlorperazine Maleate [Compazine] 10 mg PO Q6HR PRN #30 tablet 08/03/16 [Rx] Cholecalciferol (Vitamin D3) [Vitamin D] 50,000 unit PO QWEEK 11/15/16 [History] Furosemide [Lasix] 20 mg PO DAILY 11/15/16 [History] Amitriptyline HCl 75 mg PO HS #30 tablet 11/30/16 [Rx] Omeprazole [PriLOSEC] 20 mg PO DAILY #30 capsule 01/09/17 [Rx] Sennosides [Senna] 2 tab PO HS #60 tablet 02/12/17 [Rx] FentaNYL PATCH [Duragesic] 12 mcg TD Q72H #10 patch.td72 05/13/17 [Rx] Morphine Immed Rel [Morphine Sulfate] 15 mg PO Q2-4H PRN #90 tab 05/13/17 [Rx] LORazepam [Ativan] 1 mg PO DAILY 05/27/17 [History] Allergies paper tape Adverse Reaction (Unknown, Uncoded 05/23/17 15:58) Unknown - Meds/Allergy Pre-op Review Medications Reviewed: Yes Allergies Reviewed: Yes Beta Blockers on Current Med List: No Anesthesia Results - Labs 05/30/17 04:52 05/30/17 04:52 - Imaging EKG: report reviewed (SB) Additional studies: ECHO EF 60% Anesthesia Exam O2 Sat Weight 88.9 kg O2 Sat by Pulse Oximetry 96 O2 Sat by Pulse Oximetry 92 O2 Sat by Pulse Oximetry 91 O2 Sat by Pulse Oximetry 96 O2 Sat by Pulse Oximetry 96 O2 Sat by Pulse Oximetry 93 Vital Signs Temp Pulse Resp BP Pulse Ox 98.1 F 82 16 164/82 95 05/26/17 21:52 05/26/17 21:52 05/26/17 21:52 05/26/17 21:52 05/26/17 21:52 Height: 5'1 Weight: 195 lbs NPO (# of Hours): MN Pain Scale: 0 - HEENT Pupil (Motor): Pupils equal, EOMI Mallampati: II Teeth: Missing, Poor dentition Oral Opening: Greater than 3 - [employer] LOC: Oriented [employer] Motor: Normal RUE, Normal LUE, Normal RLE, Normal LLE, Normal Face [employer] Sensory: Normal: RUE, LUE, RLE, LLE, Face - Cardiac Rhythm: Regular Murmur: None JVD: No Carotid Bruit: No - Pulmonary Breath Sounds: bilateral Clear Respiratory Effort: Symmetrical Anesthesia Assess/Plan ASA Score: 3 (HTN Cirrhosis CKD) Modified [place] Scale for Level of Consciousness: Cooperative, oriented, and tranquil Anesthetic Plan: General Monitoring Plan: Standard Monitors Recovery Plan: PACU (Discussed GA, agrees to proceed)
[2017-05-31] MEDS: 0.9 % Sodium Chloride 1,000 ML IVC SCH ×3 (01:23→21:26)
[2017-05-31] MEDS: *HR* Enoxaparin 40 MG/0.4 ML SYRINGE SQ SCH (05:28)
[2017-05-31] MEDS: *HR* Morphine 2 MG/ML SYRINGE IVP PRN ×3 (06:01→15:19)
[2017-05-31 07:18] LABS: ANA IgG by ELISA DETECTED (None Detected)
[2017-05-31] MEDS: Furosemide 20 MG TABLET PO SCH (07:53)
[2017-05-31] MEDS: Folic Acid 1 MG TABLET PO SCH (07:53)
[2017-05-31] MEDS: Thiamine (B-1) 100 MG TABLET PO SCH (07:53)
--- NOTE | 2017-05-31 09:03 | Event Note ---
Date of Encounter: 05/31/17 Time of Encounter: 09:00 For OR this afternoon. She is comfortable at present. Only has pain with movement of leg. Provided emotional support. Palliative will f/u on Saturday. Son at bedside - denies any questions or concerns.
--- NOTE | 2017-05-31 11:36 | Internal Med Progress Note ---
Date of Encounter: 05/31/17 Time of Encounter: 08:30 - Assessment and plan (1) Fracture of femoral neck, right Current Visit: Yes Status: Acute Assessment and plan: Pathologic fracture of the femoral neck. Orthopedics recommends surgery later today. Evaluated 2-D echocardiogram. Patient has normal ejection fraction. Patient cleared from medical standpoint for surgery. At intermediate risk for complications from surgery. Chest x-ray reviewed and shows no acute abnormalities. Qualifiers: Encounter type: initial encounter Fracture type: closed Qualified Code(s) : S72.001A - Fracture of unspecified part of neck of right femur, initial encounter for closed fracture (2) Metastatic breast cancer Current Visit: Yes Status: Chronic Assessment and plan: Continue supportive care and pain control. On Decadron due to nerve impingement lesions. 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 Qualifiers: Hepatic cirrhosis type: unspecified hepatic cirrhosis Ascites presence: without ascites Qualified Code(s): K74.60 - Unspecified cirrhosis of liver (7) Depression Current Visit: Yes Status: Chronic Qualifiers: Depression Type: major depressive disorder Major depression recurrence: recurrent Active/Remission status: in partial remission Qualified Code(s): F33.41 - Major depressive disorder, recurrent, in partial remission (8) Lower extremity edema Current Visit: Yes Status: Acute Assessment and plan: Improved with IV Lasix use. Continue oral Lasix. (9) UTI (urinary tract infection) Current Visit: Yes Status: Acute Assessment and plan: with Klebsiella pneumoniae. Will transition to oral antibiotics Qualifiers: Urinary tract infection type: acute cystitis Hematuria presence: without hematuria Qualified Code(s): N30.00 - Acute cystitis without hematuria (10) DVT prophylaxis Current Visit: Yes Status: Acute Assessment and plan: On Lovenox - Subjective Interval history: Patient feels much better this morning. Pain is better controlled. Awaiting surgery that scheduled for later today. No new complaints at this time. - Constitutional Vitals: Temp Pulse Resp BP Pulse Ox 98.4 F 73 18 111/77 93 05/31/17 07:09 05/31/17 07:09 05/31/17 07:09 05/31/17 07:09 05/31/17 08:18 General appearance: Present: mild distress, A&O X 3, pleasant, answers questions appropriately - Respiratory Respiratory exam: Present: CTAB. Absent: accessory muscle use, rales, rhonchi, wheezes - Cardiovascular Cardiovascular exam: Present: RRR, +S1, +S2. Absent: diastolic murmur, gallop, rubs, systolic murmur - GI/Abdominal GI/Abdominal exam: Present: normal bowel sounds, soft, no peritoneal signs. Absent: distended, tenderness - Extremities Exam Extremities exam: Present: tenderness (In the right hip region), warm, radial pulses palpable and symmetrical. Absent: calf tenderness, cyanotic, pedal edema Internal Medicine: Result - Labs CBC & Chem 7: 05/30/17 04:52 05/30/17 04:52 - ABG Interpretation ABG results: PT/INR, D-dimer PT 14.4 Seconds (9.4-12.1) H 05/30/17 04:52 - Impressions Impressions Chest X-Ray 05/30/17 15:24 IMPRESSION: No evidence of acute cardiopulmonary disease. D/ / Olaf Sawyer MD / Olaf Sawyer MD Interpreting Provider: Olaf Sawyer MD Consult Discharge Plan - Plan Referrals: Santana Howard MD [Primary Care Provider] - Jose Sam MD [Partnered Physician] - 06/06/17 9:00 am (Follow up appt at cancer center for chemo)
--- NOTE | 2017-05-31 14:42 | Anesthesia Evaluation PreOp ---
Date of Encounter: 05/31/17 Time of Encounter: 14:36 - Past History Planned Operation: Right Hip TFN Alcohol Use: none Drug use: none Medications and Allergies Prochlorperazine Maleate [Compazine] 10 mg PO Q6HR PRN #30 tablet 08/03/16 [Rx] Cholecalciferol (Vitamin D3) [Vitamin D] 50,000 unit PO QWEEK 11/15/16 [History] Furosemide [Lasix] 20 mg PO DAILY 11/15/16 [History] Amitriptyline HCl 75 mg PO HS #30 tablet 11/30/16 [Rx] Omeprazole [PriLOSEC] 20 mg PO DAILY #30 capsule 01/09/17 [Rx] Sennosides [Senna] 2 tab PO HS #60 tablet 02/12/17 [Rx] FentaNYL PATCH [Duragesic] 12 mcg TD Q72H #10 patch.td72 05/13/17 [Rx] Morphine Immed Rel [Morphine Sulfate] 15 mg PO Q2-4H PRN #90 tab 05/13/17 [Rx] LORazepam [Ativan] 1 mg PO DAILY 05/27/17 [History] Allergies paper tape Adverse Reaction (Unknown, Uncoded 05/23/17 15:58) Unknown Anesthesia Results - Labs 05/30/17 04:52 05/30/17 04:52
[2017-05-31] MEDS: *HR* FentaNYL PATCH 25 MCG PATCH TD SCH (15:15)
[2017-05-31] MEDS ORDERED: *HR* Succinylcholine 200 MG/10 ML VIAL IVP ONE (15:22)
[2017-05-31] MEDS ORDERED: *HR* FentaNYL (PF) 100 MCG/2 ML VIAL ONE ×2 (15:22→18:09)
[2017-05-31] MEDS ORDERED: *HR* Propofol 200 MG/20 ML VIAL IVP ONE (15:22)
[2017-05-31] MEDS ORDERED: Lidocaine -MPF 2% 2 ML VIAL ONE (15:22)
[2017-05-31] MEDS ORDERED: Ondansetron 4 MG/2 ML VIAL ONE (15:22)
[2017-05-31] MEDS ORDERED: *HR* Meperidine 25 MG/ML SYRINGE IVP PRN (17:06)
[2017-05-31] MEDS ORDERED: *HR* HYDROmorphone (PF) 1 MG/ML SYRINGE IVP PRN (17:06)
[2017-05-31] MEDS ORDERED: *HR* Promethazine 25 MG/ML VIAL IVP PRN (17:06)
[2017-05-31] MEDS ORDERED: *HR* HYDROmorphone 2 MG/ML SYRINGE ONE ×2 (18:24→19:24)
--- NOTE | 2017-05-31 19:26 | Operative Note ---
Date of procedure: 05/31/17 Pre-op diagnosis: Right hip impending pathologic fracture Post-op diagnosis: same Procedure: Right hip intramedullary nailing Implants: Synthes TFN Anesthesia: LEA Surgeon: Patrick Gayle Estimated blood loss (cc): 400 Specimen: 0 Condition: stable Disposition: PACU Procedure in Detail: Indications: The patient is 67-year-old woman with history of stage IV breast cancer. Patient has significant right hip pain and has been unable to bear weight on the right hip for over a week now. An MRI shows a large metastatic lesion in the femoral neck with cortical extension. The patient has an impending pathologic fracture and was indicated for stabilization. Procedure: The patient received IV antibiotics in the holding area. She was brought to the operating room, sign in was performed. The patient underwent general anesthesia on the hospital bed. She was then transferred to the fracture table in supine position. The patient was positioned with the support groin post, the affected right lower extremity in the traction alejandra and the contralateral lower extremity in a well-padded limb alejandra with a hip flexed and abducted out of the way. Fluoroscopy was then brought in, the fractures visualized, and the fracture reduced. We checked on AP and true lateral view of the hip. Once satisfactory the right hip, from the pelvis down to the knee, was prepped and draped in usual sterile fashion. A timeout was performed. The level of the greater trochanter was palpated, a 7-8 cm oblique incision was made just proximally, , followed by Bovie dissection. The patient had a very thick fat layer. The hip abductor was sharply split in line with its fibers with a curved Hamlin scissors. The tip of the greater trochanter was palpable. A curved awl was then positioned on the tip. Its position was checked on fluoroscopy, slightly advanced, and we checked the lateral view. It was able to advance hole through the tip of the greater trochanter. A guidewire was then used followed by the proximal reamer. A short Trochanteric Femoral Nail Advanced with 130 degree neck angle, 10 mm diameter, was assembled, and appropriately inserted into the proximal femur. The appropriate level was checked under fluoroscopy. The triple trochars of 130 degree neck angle was then positioned against the skin, checking fluoroscopy for positioning. Once satisfactory a 3 cm incision was made, the fascia was bluntly split along with the muscle fibers of the vastus lateralis. The triple trocar was advanced up against the lateral cortex. The guidepin was then driven up into the femoral head, checking AP and lateral views. The wire was adjusted as needed. Unfortunately the rotation was not changing. The patient had a very tight canal requiring made to tap the nail down significantly. The nail would not rotate within the canal. The slap hammer was attached and the nail was removed. We then reamed over the guidewire using the femoral reamers. I started with an 8.5 mm reamer and went up to 11.5 mm, in 0.5 mm increments. The nail was then repositioned. The second incision was extended slightly and the appropriate version was used. The guidewire was then placed once again and checked on fluoroscopy. A 90 mm long helical blade was chosen. Overdrilled the guidewire, and the helical blade was tapped in place over the guidewire in standard technique. Once close to the edge of the femoral head, the setscrew was then screwed down. The triple trochars for the distal static locking screw were placed in the jig, advancing through the second incision. The trochars were advanced to the cortex , and drilled across. The depth was measured and a 34 mm long by 5 mm bicortical screw was placed. All trochars and jig were removed. Final fluoroscopy shots were taken and saved showing good AP and lateral views of the hip and also distally at the tip of the nail. The wounds were irrigated with normal saline. Fascia over the abductors was closed with 1 Vicryl [id number] stitches, including the deep subcutaneous fat layer. Subcutaneous tissues were closed with 2-0 Vicryl, and the skin incisions were closed with lori. Sterile dressings were applied. The patient was transferred to hospital bed where she was extubated and taken to recovery room in stable condition.
--- NOTE | 2017-05-31 20:03 | Anesthesia Evaluation Post Op ---
Date of Encounter: 05/31/17 Time of Encounter: 20:00 - Vital Signs Vital Signs: Vital Signs/O2 Sat/Glucose, Most Current Temp Pulse Resp BP Pulse Ox 05/31/17 19:52 75 20 128/94 92 05/31/17 19:42 79 16 103/85 91 05/31/17 19:32 98.7 F 79 16 104/68 88 - Lungs Lungs: Clear Ascult./Percussion - Airway Airway: Non-obstructed - Cardiovascular Regular Rate - Mental Status Mental Status: Alert & Oriented, Answers Appropriately - Pain Pain Scale: 1 - Nausea Vomiting Nausea Vomiting: Not Present - Hydration Hydration: NPO - Discharge PostOp Status: Transfer Patient to floor
[2017-05-31] MEDS ORDERED: Naloxone 0.4 MG/ML INJ IVP PRN ×2 (20:37)
[2017-05-31] MEDS ORDERED: Ipratropium/Albuterol Neb 3 ML IH PRN (20:37)
[2017-05-31] MEDS ORDERED: Ondansetron 4 MG/2 ML VIAL IVP PRN (20:37)
[2017-05-31] MEDS ORDERED: Lactulose Oral Soln 20 GM/30 ML UDC PO PRN (20:37)
[2017-05-31] MEDS ORDERED: *HR* LORazepam 1 MG TABLET PO PRN (20:37)
[2017-05-31] MEDS: *HR* Enoxaparin 30 MG/0.3 ML SYRINGE SQ SCH (21:25)
[2017-06-01] MEDS: ceFAZolin 2,000 MG in D5% in Water 100 ML IVPB SCH ×2 (00:31→08:42)
[2017-06-01] MEDS: 0.9 % Sodium Chloride 1,000 ML IVC SCH ×2 (02:48→13:23)
[2017-06-01] MEDS: *HR* Enoxaparin 30 MG/0.3 ML SYRINGE SQ SCH ×2 (05:19→17:49)
[2017-06-01 05:42] LABS: Basophils % 0.1 %; Hematocrit 33.3 % (35.3-44.9); Hemoglobin 11.3 g/dL (11.5-15.4); Immature Granulocytes % 0.9 % (0-4); Lymphocytes # 1.3 K/mcL (0.6-4.6); Lymphocytes % 7.5 %; Mean Corpuscular HGB Conc 33.9 g/dL (31.6-35.5); Mean Corpuscular Volume 106.1 fL (83.0-100.0); Mean Platelet Volume 10.7 fL (9.4-12.4); Monocytes # 1.5 K/mcL (0.0-1.3); Monocytes % 8.9 %; Platelet Count 157 K/mcL (140-400); Red Blood Count 3.14 M/mcL (3.82-4.97); Red Cell Distribution Width 16.6 % (11.5-14.5); Segmented Neutrophils % 82.6 %
[2017-06-01 05:58] LABS: BUN/Creatinine Ratio 26 (6-26); Blood Urea Nitrogen 22 mg/dL (7-20); Calcium 7.4 mg/dL (8.6-10.8); Carbon Dioxide 21 mEq/L (19-29); Chloride 108 mEq/L (98-109); Glucose 103 mg/dL (70-99); Osmolality,Calculated 290 (280-300); Potassium 4.6 mEq/L (3.5-4.5); Sodium 138 mEq/L (136-145); eGFR For African Americans > 60 (> 60); eGFR For Non-African Americans > 60 (> 60)
[2017-06-01] MEDS: Furosemide 20 MG TABLET PO SCH (08:36)
[2017-06-01] MEDS: *HR* Morphine 2 MG/ML SYRINGE IVP PRN ×2 (08:36→14:01)
[2017-06-01] MEDS: Folic Acid 1 MG TABLET PO SCH (08:36)
[2017-06-01] MEDS: Thiamine (B-1) 100 MG TABLET PO SCH (08:36)
--- NOTE | 2017-06-01 10:38 | Internal Med Progress Note ---
Date of Encounter: 06/01/17 Time of Encounter: 08:40 - Assessment and plan (1) Fracture of femoral neck, right Current Visit: Yes Status: Acute Assessment and plan: Status post intramedullary nailing. Doing well postprocedure. Continue physical therapy. Pain control with intravenous narcotic medications. Moderate risk for complications. Patient does have leukocytosis but most likely due to surgery. Does not appear to have any other signs of systemic infection at this time. She is receiving ciprofloxacin for urinary tract infection. Qualifiers: Encounter type: initial encounter Fracture type: closed Qualified Code(s) : S72.001A - Fracture of unspecified part of neck of right femur, initial encounter for closed fracture (2) Metastatic breast cancer Current Visit: Yes Status: Chronic Assessment and plan: She will follow up with hematology and oncology for further management after discharge. Receiving Decadron for metastatic lesions in spine (3) Chronic pain Current Visit: Yes Status: Acute Assessment and plan: Palliative care managing pain medications and regimen. Seems to be well controlled with current regimen Qualifiers: Chronic pain type: chronic pain syndrome Qualified Code(s): G89.4 - Chronic pain syndrome (4) Chemotherapy-induced neuropathy Current Visit: No Status: Chronic (5) Altered mental status Current Visit: Yes Status: Resolved Qualifiers: Altered mental status type: somnolence Qualified Code(s): R40.0 - Somnolence (6) Cirrhosis Current Visit: Yes Status: Chronic Assessment and plan: Continue supportive care with folic acid and thiamine Qualifiers: Hepatic cirrhosis type: unspecified hepatic cirrhosis Ascites presence: without ascites Qualified Code(s): K74.60 - Unspecified cirrhosis of liver (7) Depression Current Visit: Yes Status: Chronic Assessment and plan: Continue Elavil Qualifiers: Depression Type: major depressive disorder Major depression recurrence: recurrent Active/Remission status: in partial remission Qualified Code(s): F33.41 - Major depressive disorder, recurrent, in partial remission (8) Lower extremity edema Current Visit: Yes Status: Acute Assessment and plan: On oral Lasix. Patient had about 200 mL of urine output since the night. We will continue to monitor urine output closely. Renal function remained stable. Did have good response to intravenous Lasix yesterday. (9) UTI (urinary tract infection) Current Visit: Yes Status: Acute Assessment and plan: With Klebsiella pneumoniae. Complete treatment with ciprofloxacin. Qualifiers: Urinary tract infection type: acute cystitis Hematuria presence: without hematuria Qualified Code(s): N30.00 - Acute cystitis without hematuria (10) DVT prophylaxis Current Visit: Yes Status: Acute Assessment and plan: On Lovenox - Subjective Interval history: Patient underwent surgery yesterday with right hip intramedullary nailing. Doing well postprocedure. Continues to have pain although it is better controlled. He is currently sitting up in chair. Tolerating diet well. Patient has noticed that she has had a decrease in her urine output. - Constitutional Vitals: Temp Pulse Resp BP Pulse Ox 98.0 F 82 16 105/72 94 06/01/17 07:42 06/01/17 07:42 06/01/17 07:42 06/01/17 07:42 06/01/17 07:42 General appearance: Present: mild distress, A&O X 3, pleasant, answers questions appropriately - Neck Neck exam general surgery: Present: supple, trachea midline. Absent: lymphadenopathy - Respiratory Respiratory exam: Present: CTAB. Absent: accessory muscle use, rales, rhonchi, wheezes - Cardiovascular Cardiovascular exam: Present: RRR, +S1, +S2. Absent: diastolic murmur, gallop, rubs, systolic murmur - GI/Abdominal GI/Abdominal exam: Present: normal bowel sounds, soft, no peritoneal signs. Absent: distended, tenderness - Extremities Exam Extremities exam: Present: tenderness (right hip), warm, radial pulses palpable and symmetrical. Absent: calf tenderness, cyanotic, pedal edema Internal Medicine: Result - Labs CBC & Chem 7: 06/01/17 04:08 06/01/17 04:08 Labs: Short CBC 06/01/17 Range/Units 04:08 WBC 17.0 H D (4.3-11.1) K/mcL Hgb 11.3 L (11.5-15.4) g/dL Hct 33.3 L (35.3-44.9) % Plt Count 157 (140-400) K/mcL Neutrophils # 14.0 H (1.6-8.9) K/mcL BMP 06/01/17 04:08 Sodium 138 Potassium 4.6 H D Chloride 108 Carbon Dioxide 21 BUN 22 H Creatinine 0.84 Glucose 103 H Calcium 7.4 L - ABG Interpretation ABG results: PT/INR, D-dimer PT 14.4 Seconds (9.4-12.1) H 05/30/17 04:52 - Impressions Impressions Fluoroscopy 05/31/17 17:40 IMPRESSION: Intraprocedural fluoroscopic spot images as above. See separate procedure report for more information. D/ / Scout Foss MD / Scout Foss MD Interpreting Provider: Scout Foss MD Hip X-Ray 05/31/17 17:40 IMPRESSION: Intraprocedural fluoroscopic spot images as above. See separate procedure report for more information. D/ / Scout Foss MD / Scout Foss MD Interpreting Provider: Scout Foss MD - VTE Documentation of Mechanical Device: Intermittent pneumatic compression device Consult Discharge Plan - Plan Referrals: Santana Howard MD [Primary Care Provider] - Jose Sam MD [Partnered Physician] - 06/06/17 9:00 am (Follow up appt at cancer center for chemo)
--- NOTE | 2017-06-01 15:11 | Orthopedics Progress Note ---
Date of Encounter: 06/01/17 Time of Encounter: 15:08 - Assessment and Plan (1) Pathologic fracture of neck of right femur Current Visit: Yes Status: Acute Postoperative day #1, status post intramedullary nailing, stable Continue OT/PT Continue DVT prophylaxis Discharge to [place] [facility] is pending Patient is to be weightbearing as tolerated, use of a walker Daily dry dressing changes to right hip Continue DVT prophylaxis with Lovenox 30 mg subcutaneous every 1214 days Follow-up with Janet Montano PA-C in 2 weeks Qualifiers: Encounter type: subsequent encounter Fracture healing: with routine healing Qualified Code(s): M84.451D - Pathological fracture, right femur, subsequent encounter for fracture with routine healing (2) Fracture of femoral neck, right Current Visit: Yes Status: Acute Qualifiers: Encounter type: initial encounter Fracture type: closed Qualified Code(s) : S72.001A - Fracture of unspecified part of neck of right femur, initial encounter for closed fracture Subjective Principal diagnosis: right hip fracture Interval history: Patient is comfortable and ambulated this morning with therapy Right hip: Dressings are clean dry and intact Bilateral calves soft and nontender, SCDs were temporarily removed Neurovascular intact distally Objective Vital signs: Vital Signs Temp Pulse Resp BP Pulse Ox 06/01/17 11:00 98.0 F 95 18 93/66 95 06/01/17 07:42 98.0 F 82 16 105/72 94 06/01/17 04:12 97.6 F 90 16 117/80 94 05/31/17 23:30 97.7 F 90 18 104/72 94 05/31/17 22:30 97.6 F 94 18 108/76 90 05/31/17 21:30 97.3 F L 95 20 111/81 93 05/31/17 21:00 97.4 F L 95 20 112/79 91 05/31/17 20:45 97.4 F L 85 18 124/88 95 05/31/17 20:22 85 18 118/89 92 05/31/17 20:12 82 18 124/93 92 05/31/17 20:02 98.7 F 81 20 124/90 92 05/31/17 19:52 75 20 128/94 92 05/31/17 19:42 79 16 103/85 91 05/31/17 19:32 98.7 F 79 16 104/68 88 Intake and Output 08/11/17 08/12/17 08/12/17 23:59 07:59 15:59 Intake Total 0 / 0 1100 / 1100 1420 / 1420 Output Total 1225 / 1225 200 / 200 100 / 100 Balance -1225 / -1225 900 / 900 1320 / 1320 Intake: IV Fluids 1100 / 1100 1000 / 1000 0.9 % Sodium Chloride 1, 1000 / 1000 1000 / 1000 000 ML @ 100 mls/hr IVC . Q10H AYDE Rx#:[id number] Ancef 2,000 MG In 100 / 100 Dextrose 5% 100 ML @ 200 mls/hr IVPB Q8HR AYDE Rx#: [id number] Oral 0 / 0 0 / 0 420 / 420 Output: Urine 175 / 175 0 / 0 Estimated Blood Loss 800 / 800 Urine Amount (Catheter) 250 / 250 Catheter 200 / 200 100 / 100 Other: Meal NPO Full Percent of Meal Consumed 0% Weight 97 kg Patient Weight 06/01/17 23:59 Weight 97 kg Incision: clean and dry - Labs CBC & BMP: 06/01/17 04:08 06/01/17 04:08 Labs: Abnormal lab results WBC 17.0 K/mcL (4.3-11.1) H D 06/01/17 04:08 RBC 3.14 M/mcL (3.82-4.97) L 06/01/17 04:08 Hgb 11.3 g/dL (11.5-15.4) L 06/01/17 04:08 Hct 33.3 % (35.3-44.9) L 06/01/17 04:08 MCV 106.1 fL (83.0-100.0) H 06/01/17 04:08 MCH 36.0 pg (28.0-33.3) H 06/01/17 04:08 RDW 16.6 % (11.5-14.5) H 06/01/17 04:08 Neutrophils # 14.0 K/mcL (1.6-8.9) H 06/01/17 04:08 Monocytes # 1.5 K/mcL (0.0-1.3) H 06/01/17 04:08 PT 14.4 Seconds (9.4-12.1) H 05/30/17 04:52 Potassium 4.6 mEq/L (3.5-4.5) H D 06/01/17 04:08 BUN 22 mg/dL (7-20) H 06/01/17 04:08 Glucose 103 mg/dL (70-99) H 06/01/17 04:08 POC Glucose 114 (58-89) H 05/31/17 05:57 Calcium 7.4 mg/dL (8.6-10.8) L 06/01/17 04:08 Ferritin 1236 ng/ml (5-204) H 05/28/17 12:29 Total Bilirubin 3.9 mg/dL (0.2-1.2) H 05/28/17 03:22 AST 119 Units/L (5-34) H 05/28/17 03:22 Alkaline Phosphatase 470 Units/L (38-126) H 05/28/17 03:22 Albumin 2.0 g/dL (3.5-5.0) L 05/28/17 03:22 Globulin 4.0 g/dL (2.4-3.5) H 05/28/17 03:22 Albumin/Globulin Ratio 0.5 (1.1-2.2) L 05/28/17 03:22 Urine Color [place] (Yellow) A 05/27/17 03:00 Urine Clarity Cloudy (Clear) A 05/27/17 03:00 Urine Ketones Trace mg/dL (Negative) H 05/27/17 03:00 Urine Nitrite Positive (Negative) A 05/27/17 03:00 Urine Bilirubin Moderate (Negative) H 05/27/17 03:00 Urine Urobilinogen 2.0 mg/dL (Normal) H 05/27/17 03:00 Ur Leukocyte Esterase Moderate (Negative) H 05/27/17 03:00 Urine Microscopic WBC TNTC per hpf (0-3) H 05/27/17 03:00 Urine Bacteria Many per hpf (None-Few) H 05/27/17 03:00 Ur Culture Indicated? YES (NO) A 05/27/17 03:00 [place]AK[place]INDER Screen DETECTED (None Detected) A 05/28/17 12:29 [place]ER Titer 1:160 (<1:40) H 05/28/17 12:29 - VTE Documentation of Mechanical Device: Intermittent pneumatic compression device Consult Discharge Plan - Plan Referrals: Santana Howard MD [Primary Care Provider] - Jose Sam MD [Partnered Physician] - 06/06/17 9:00 am (Follow up appt at cancer center for chemo)
[2017-06-01] MEDS: *HR* Morphine Immed Rel 30 MG TABLET PO PRN (15:14)
[2017-06-02] MEDS: *HR* Morphine Immed Rel 30 MG TABLET PO PRN ×2 (04:23→09:03)
[2017-06-02] MEDS: *HR* Enoxaparin 30 MG/0.3 ML SYRINGE SQ SCH ×2 (05:46→17:15)
[2017-06-02 08:24] LABS: Basophils % 0.1 %; Hematocrit 28.9 % (35.3-44.9); Hemoglobin 10.1 g/dL (11.5-15.4); Immature Platelets 4.7 % (1.1-6.1); Lymphocytes # 1.7 K/mcL (0.6-4.6); Lymphocytes % 13.3 %; Mean Corpuscular HGB Conc 34.9 g/dL (31.6-35.5); Mean Corpuscular Hemoglobin 36.1 pg (28.0-33.3); Mean Corpuscular Volume 103.2 fL (83.0-100.0); Mean Platelet Volume 10.8 fL (9.4-12.4); Monocytes # 1.3 K/mcL (0.0-1.3); Monocytes % 10.6 %; Neutrophils # 9.3 K/mcL (1.6-8.9); Nucleated Red Blood Cells 0.2 /100 WBC (0); Platelet Count 117 K/mcL (140-400)
[2017-06-02] MEDS: Folic Acid 1 MG TABLET PO SCH (08:47)
[2017-06-02] MEDS: Thiamine (B-1) 100 MG TABLET PO SCH (08:47)
[2017-06-02] MEDS: Furosemide 20 MG TABLET PO SCH (08:49)
[2017-06-02 10:01] LABS: BUN/Creatinine Ratio 31 (6-26); Carbon Dioxide 19 mEq/L (19-29); Chloride 107 mEq/L (98-109); Glucose 120 mg/dL (70-99); Osmolality,Calculated 284 (280-300); Potassium 4.7 mEq/L (3.5-4.5); Sodium 134 mEq/L (136-145); eGFR For African Americans > 60 (> 60); eGFR For Non-African Americans > 60 (> 60)
[2017-06-02 10:02] LABS: Blood Urea Nitrogen 26 mg/dL (7-20)
[2017-06-02] MEDS ORDERED: Furosemide 20 MG/2 ML VIAL IVP ONE (12:12)
--- NOTE | 2017-06-02 13:59 | Internal Med Progress Note ---
Date of Encounter: 06/02/17 Time of Encounter: 10:30 - Assessment and plan (1) Fracture of femoral neck, right Current Visit: Yes Status: Acute Assessment and plan: Status post intramedullary nailing postop day 2. Doing well and pain is well controlled. Continue supportive care and physical therapy. Patient will need placement to skilled rehabilitation. 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 Moderate risk for complications. Qualifiers: Encounter type: initial encounter Fracture type: closed Qualified Code(s) : S72.001A - Fracture of unspecified part of neck of right femur, initial encounter for closed fracture (2) Metastatic breast cancer Current Visit: Yes Status: Chronic Assessment and plan: Continue supportive care and pain control. Receiving Decadron for spine metastases (3) Chronic pain Current Visit: Yes Status: Acute Assessment and plan: On morphine by mouth and Duragesic patch. Pain is well controlled at this time. Qualifiers: Chronic pain type: chronic pain syndrome Qualified Code(s): G89.4 - Chronic pain syndrome (4) Chemotherapy-induced neuropathy Current Visit: No Status: Chronic (5) Altered mental status Current Visit: Yes Status: Resolved Qualifiers: Altered mental status type: somnolence Qualified Code(s): R40.0 - Somnolence (6) Cirrhosis Current Visit: Yes Status: Chronic Assessment and plan: Continue supportive care with folic acid and thiamine. Qualifiers: Hepatic cirrhosis type: unspecified hepatic cirrhosis Ascites presence: without ascites Qualified Code(s): K74.60 - Unspecified cirrhosis of liver (7) Depression Current Visit: Yes Status: Chronic Assessment and plan: On Elavil. Qualifiers: Depression Type: major depressive disorder Major depression recurrence: recurrent Active/Remission status: in partial remission Qualified Code(s): F33.41 - Major depressive disorder, recurrent, in partial remission (8) Lower extremity edema Current Visit: Yes Status: Acute Assessment and plan: Pedal edema is improving. Patient had decreased urine output and received IV fluids yesterday. Renal function remains stable. Will change Lasix to IV. (9) UTI (urinary tract infection) Current Visit: Yes Status: Acute Assessment and plan: Complete treatment with ciprofloxacin. Qualifiers: Urinary tract infection type: acute cystitis Hematuria presence: without hematuria Qualified Code(s): N30.00 - Acute cystitis without hematuria (10) DVT prophylaxis Current Visit: Yes Status: Acute Assessment and plan: On Lovenox - Subjective Interval history: Patient continues to improve. Lying in bed and appears comfortable. Denies any new complaints at this time. Did have decrease in urine output yesterday but was able to pass urine this morning. Denies any shortness of breath or chest pain. Pain in right lower extremity is well controlled - Constitutional Vitals: Temp Pulse Resp BP Pulse Ox 97.6 F 66 16 136/84 95 06/02/17 11:23 06/02/17 11:23 06/02/17 11:23 06/02/17 11:23 06/02/17 11:23 General appearance: Present: mild distress, A&O X 3, pleasant, answers questions appropriately - Respiratory Respiratory exam: Present: CTAB. Absent: accessory muscle use, rales, rhonchi, wheezes - Cardiovascular Cardiovascular exam: Present: RRR, +S1, +S2. Absent: diastolic murmur, gallop, rubs, systolic murmur - GI/Abdominal GI/Abdominal exam: Present: normal bowel sounds, soft, no peritoneal signs. Absent: distended, tenderness - Extremities Exam Extremities exam: Present: pedal edema, tenderness (Right hip), warm, radial pulses palpable and symmetrical. Absent: calf tenderness, cyanotic Internal Medicine: Result - Labs CBC & Chem 7: 06/02/17 08:15 06/02/17 08:15 Labs: Short CBC 06/02/17 Range/Units 08:15 WBC 12.4 H (4.3-11.1) K/mcL Hgb 10.1 L (11.5-15.4) g/dL Hct 28.9 L (35.3-44.9) % Plt Count 117 L (140-400) K/mcL Neutrophils # 9.3 H (1.6-8.9) K/mcL BMP 06/02/17 08:15 Sodium 134 L Potassium 4.7 H Chloride 107 Carbon Dioxide 19 BUN 26 H Creatinine 0.84 Glucose 120 H Calcium 7.0 L - ABG Interpretation ABG results: PT/INR, D-dimer PT 14.4 Seconds (9.4-12.1) H 05/30/17 04:52 - VTE Documentation of Mechanical Device: Intermittent pneumatic compression device Consult Discharge Plan - Plan Referrals: Santana Howard MD [Primary Care Provider] - Jose Sam MD [Partnered Physician] - 06/06/17 9:00 am (Follow up appt at cancer center for chemo)
[2017-06-02] MEDS: *HR* Morphine 2 MG/ML SYRINGE IVP PRN ×2 (20:09→23:47)
[2017-06-03] MEDS: *HR* Morphine 2 MG/ML SYRINGE IVP PRN ×2 (03:59→09:46)
[2017-06-03 05:12] LABS: BUN/Creatinine Ratio 31 (6-26); Blood Urea Nitrogen 28 mg/dL (7-20); Calcium 7.6 mg/dL (8.6-10.8); Carbon Dioxide 19 mEq/L (19-29); Chloride 108 mEq/L (98-109); Glucose 130 mg/dL (70-99); Osmolality,Calculated 289 (280-300); Sodium 136 mEq/L (136-145); eGFR For African Americans > 60 (> 60); eGFR For Non-African Americans > 60 (> 60)
[2017-06-03 05:34] LABS: Potassium 5.8 mEq/L (3.5-4.5)
[2017-06-03] MEDS: *HR* Enoxaparin 30 MG/0.3 ML SYRINGE SQ SCH ×2 (06:29→18:40)
[2017-06-03 06:39] LABS: Basophils % 0.1 %; Hematocrit 28.8 % (35.3-44.9); Hemoglobin 9.6 g/dL (11.5-15.4); Immature Granulocytes % 1.3 % (0-4); Lymphocytes # 1.2 K/mcL (0.6-4.6); Mean Corpuscular HGB Conc 33.3 g/dL (31.6-35.5); Mean Corpuscular Hemoglobin 35.6 pg (28.0-33.3); Mean Corpuscular Volume 106.7 fL (83.0-100.0); Monocytes # 0.9 K/mcL (0.0-1.3); Neutrophils # 8.1 K/mcL (1.6-8.9); Nucleated Red Blood Cells 0.4 /100 WBC (0); Platelet Count 127 K/mcL (140-400); Red Cell Distribution Width 16.2 % (11.5-14.5); Segmented Neutrophils % 77.6 %
[2017-06-03] MEDS: Folic Acid 1 MG TABLET PO SCH (09:23)
[2017-06-03] MEDS: Thiamine (B-1) 100 MG TABLET PO SCH (09:23)
--- NOTE | 2017-06-03 14:59 | Discharge Summary ---
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 (5) Altered mental status Priority: Secondary Status: Resolved Qualifiers: Altered mental status type: somnolence Qualified Code(s): R40.0 - Somnolence (6) Cirrhosis Priority: Secondary Status: Chronic Qualifiers: Hepatic cirrhosis type: unspecified hepatic cirrhosis Ascites presence: without ascites Qualified Code(s): K74.60 - Unspecified cirrhosis of liver (7) Depression Priority: Secondary Status: Chronic Qualifiers: Depression Type: major depressive disorder Major depression recurrence: recurrent Active/Remission status: in partial remission Qualified Code(s): F33.41 - Major depressive disorder, recurrent, in partial remission (8) Lower extremity edema Priority: Secondary Status: Acute (9) UTI (urinary tract infection) Priority: Secondary Status: Acute Qualifiers: Urinary tract infection type: acute cystitis Hematuria presence: without hematuria Qualified Code(s): N30.00 - Acute cystitis without hematuria (10) DVT prophylaxis Priority: Secondary Status: Acute - Discharge Medications Prescriptions: Morphine Immed Rel [Morphine Sulfate] 15 mg PO Q4HR PRN #20 tab PRN Reason: Moderate Pain Ondansetron [Zofran] 4 mg PO Q8HR PRN #30 tablet PRN Reason: Nausea FentaNYL PATCH [Duragesic] 25 mcg TD Q72H #7 Home Medications: Cholecalciferol (Vitamin D3) [Vitamin D3] 50,000 unit PO QWEEK 11/15/16 [History ] Furosemide [Lasix] 20 mg PO DAILY 11/15/16 [History] Amitriptyline HCl 75 mg PO HS #30 tablet 11/30/16 [Rx] Omeprazole [PriLOSEC] 20 mg PO DAILY #30 capsule 01/09/17 [Rx] FentaNYL PATCH [Duragesic] 12 mcg TD Q72H #10 patch.td72 05/13/17 [Rx] Ciprofloxacin [Cipro] 500 mg PO BID 2 Days 06/03/17 [Rx] Dexamethasone [Decadron] 4 mg PO DAILY tab 06/03/17 [Rx] Enoxaparin [Lovenox] 30 mg SQ Q12HCO 11 Days 06/03/17 [Rx] FentaNYL PATCH [Duragesic] 25 mcg TD Q72H #7 06/03/17 [Rx] Folic Acid 1 mg PO DAILY tab 06/03/17 [Rx] Ipratropium/Albuterol Neb [Duoneb] 3 ml IH [id number] PRN inh 06/03/17 [Rx] Lactulose 20 gm PO BID PRN 06/03/17 [Rx] Morphine Immed Rel [Morphine Sulfate] 15 mg PO Q4HR PRN #20 tab 06/03/17 [Rx] Ondansetron [Zofran] 4 mg PO Q8HR PRN #30 tablet 06/03/17 [Rx] Thiamine (B-1) [Vitamin B-1] 100 mg PO DAILY tab 06/03/17 [Rx] Allergies/Adverse Reactions: Allergies paper tape Adverse Reaction (Unknown, Uncoded 05/23/17 15:58) Unknown Date of admission: 05/29/17 13:53 Primary care physician: Santana Howard MD Consults: 05/31/17 20:37 Consult to Occupational Therapy [CONS] Routine Comment: Evaluate, develop and implement POC Reason for Consult: post hip surgery Consult to Orthopedic Navigator [CONS] [CONS] Routine Consult to Physical Therapy [CONS] Routine Comment: Evaluate, develop and implement POC Reason for Consult: post hip surgery Consult to Javascript Developer [CONS] Routine Reason for SW Consult: post -op hip fracture RT Post Op Consult [CONS] Routine Discharging clinician: Anthony Bustamante Anticipated date of discharge: 06/04/17 - Patient Status Disposition: Transfer SNF Condition: Good Functional capacity at discharge: uses cane/walker Overall status at discharge: patient is progressing back to baseline - Discharge Instructions Follow Up With: Jose Sam MD [Partnered Physician] - 06/06/17 9:00 am (Follow up appt at [facility] for chemo) Howard,Dillon, MD [Primary Care Provider] - (in 1-2 weeks) Janet Montano, PAC [Physician Geophysical Support Specialist] - (in 2 weeks) - Diet and Activity Activity: as per physical therapy Diet: advance to your usual diet, low fat, low cholesterol, low salt diet Hospital course: Ms. Crystal is a 67 year old female patient with history of metastatic breast cancer metastates to bone and spine was admitted here with acute involving the right hip along with altered mental status and worsening lower extremity edema. She was initially evaluated with a venous Doppler of her lower extremity which did not show any acute DVT. Her mental status decline was believed to be due to use of opioid medications. The patient's mental status improved soon after hospitalization. X-ray of the hip showed the presence of metastatic disease involving the right femoral neck and possible femoral neck fracture. As such MRI of the hip was done which showed possible impending pathologic fracture in this region. As such orthopedics was consulted and they recommended surgery for the patient. Palliative care was also consulted to help manage the patient's pain. After discussing with oncology and given the patient's prognosis and goals of care, she underwent right hip surgery with intramedullary nailing. Since then her pain has been much better controlled. She is now tolerating oral pain medications. After being evaluated by physical therapy, she was recommended placement to skilled rehabilitation. She will be discharged to skilled rehabilitation when she has approval and a bed available for her. 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 There was also left paracentral disc extrusion at L5-S1 level with caudal migration of disc displacing the left S1 nerve root. This could also be causing the patient's severe right hip and lower extremity pain. Based on oncology recommendations, patient was started on Decadron for spine metastases. Patient does have cirrhosis and gastroenterology was consulted for further evaluation as there was a concern for cirrhosis related to chemotherapy versus metastatic disease related cirrhosis. She had minimal ascites fluid and so paracentesis was not performed. She can follow up further as outpatient with gastroenterology for further workup. She has been placed on supportive therapy with thiamine and folic acid. Patient has had a rise in her serum potassium and received Kayexalate. Most likely this is from supplementation earlier during her stay here. She has now been placed on renal diet. Her renal function remained stable. There is a rise in her BUN due to Lasix use. - Time Spent with Patient Total time spent providing and/or coordinating discharge services: Greater than 30 minutes (45 min) - Constitutional Vitals: Temp Pulse Resp BP Pulse Ox 98.6 F 80 18 101/67 96 06/03/17 07:28 06/03/17 07:28 06/03/17 07:28 06/03/17 07:28 06/03/17 09:28 General appearance: Present: mild distress, A&O X 3, pleasant, answers questions appropriately - Respiratory Respiratory exam: Present: CTAB. Absent: accessory muscle use, rales, rhonchi, wheezes - Cardiovascular Cardiovascular exam: Present: RRR, +S1, +S2. Absent: diastolic murmur, gallop, rubs, systolic murmur - GI/Abdominal GI/Abdominal exam: Present: normal bowel sounds, soft, no peritoneal signs. Absent: distended, tenderness - Extremities Exam Extremities exam: Present: tenderness (right hip), warm, radial pulses palpable and symmetrical. Absent: calf tenderness, cyanotic, pedal edema - Skin Skin exam: Present: dry, intact, pallor - VTE Documentation of Mechanical Device: Graduated compression elastic hosiery
--- NOTE | 2017-06-03 15:03 | Physician Discharge Referral ---
ExtendedCare Referral Info Provider in Charge after Transfer: PCP Institutional Level of Care: Skilled - Diagnosis (1) Fracture of femoral neck, right Priority: Primary Status: Acute (2) Metastatic breast cancer Priority: Secondary Status: Chronic (3) Chronic pain Priority: Secondary Status: Acute (4) Chemotherapy-induced neuropathy Priority: Secondary Status: Chronic (5) Altered mental status Priority: Secondary Status: Resolved (6) Cirrhosis Priority: Secondary Status: Chronic (7) Depression Priority: Secondary Status: Chronic (8) Lower extremity edema Priority: Secondary Status: Acute (9) UTI (urinary tract infection) Priority: Secondary Status: Acute (10) DVT prophylaxis Priority: Secondary Status: Acute Prognosis: Fair Aware of Diagnosis: Patient, Family Aware of Prognosis: Patient, Family - Transfer Medications Prescriptions: Morphine Immed Rel [Morphine Sulfate] 15 mg PO Q4HR PRN #20 tab PRN Reason: Moderate Pain Ondansetron [Zofran] 4 mg PO Q8HR PRN #30 tablet PRN Reason: Nausea FentaNYL PATCH [Duragesic] 25 mcg TD Q72H #7 Home Medications: Cholecalciferol (Vitamin D3) [Vitamin D3] 50,000 unit PO QWEEK 11/15/16 [History ] Furosemide [Lasix] 20 mg PO DAILY 11/15/16 [History] Amitriptyline HCl 75 mg PO HS #30 tablet 11/30/16 [Rx] Omeprazole [PriLOSEC] 20 mg PO DAILY #30 capsule 01/09/17 [Rx] FentaNYL PATCH [Duragesic] 12 mcg TD Q72H #10 patch.td72 05/13/17 [Rx] Ciprofloxacin [Cipro] 500 mg PO BID 2 Days 06/03/17 [Rx] Dexamethasone [Decadron] 4 mg PO DAILY tab 06/03/17 [Rx] Enoxaparin [Lovenox] 30 mg SQ Q12HCO 11 Days 06/03/17 [Rx] FentaNYL PATCH [Duragesic] 25 mcg TD Q72H #7 06/03/17 [Rx] Folic Acid 1 mg PO DAILY tab 06/03/17 [Rx] Ipratropium/Albuterol Neb [Duoneb] 3 ml IH [id number] PRN inh 06/03/17 [Rx] Lactulose 20 gm PO BID PRN 06/03/17 [Rx] Morphine Immed Rel [Morphine Sulfate] 15 mg PO Q4HR PRN #20 tab 06/03/17 [Rx] Ondansetron [Zofran] 4 mg PO Q8HR PRN #30 tablet 06/03/17 [Rx] Thiamine (B-1) [Vitamin B-1] 100 mg PO DAILY tab 06/03/17 [Rx] Allergies/Adverse Reactions: Allergies paper tape Adverse Reaction (Unknown, Uncoded 05/23/17 15:58) Unknown - Respiratory Orders Smoking Cessation: Smoking cessation has been advised. For more information, call the [place] Tobacco Quit Line at 6-569-OLDP-NOW. - Lab Orders Lab Orders: Other (include drug levels w/frequency) (CBC and BMP on 06/05/17) - Ancillary Orders May consult with Dentist, Retail Stocker, Store Warehouse Associate PRN - Advance Directives Code Status: DNR-Arrest/Don't Intubate - Mobility Orders Ambulate (with walker) - Rehabiliation Orders Rehab Potential: Fair Rehab Orders: Evaluation for Physical Therapy, Evaluation for Occupational Therapy - Diet Orders Cardiac CERTIFICATION: I certify that the transfer of the above named patient to an Extended Care Facility is necessary for the continuing treatment of the diagnosis listed. The above information is true and accurate reflection of patient's current condition. Confidential - Redisclosure prohibited without a patient's written consent.
[2017-06-03] MEDS ORDERED: *HR* FentaNYL PATCH 25 MCG PATCH TD SCH (15:30)
[2017-06-03] MEDS: *HR* Morphine Immed Rel 30 MG TABLET PO PRN ×2 (16:32→21:21)
--- NOTE | 2017-06-03 17:21 | Orthopedics Progress Note ---
Date of Encounter: 06/03/17 Time of Encounter: 17:10 - Assessment and Plan (1) Fracture of femoral neck, right Current Visit: Yes Status: Acute POD#3 s/p right hip IM nailing Patient felt "pop" earlier today. Xrays showed good bony alignment and hardware intact. Also reviewed by Dr. Gayle who agreed with no acute findings. She had increased drainage from incision today so the "pop" was likely a seroma releasing from around surgery site. No extra lori necessary at this time as drainage coming from staple sites and not gapping to incision. Continue to change dressings when become saturated. Clean incision daily with hibiclense. No s/s infection currently. Continue with PT/OT, WBAT. Patient encouraged to ambulate to help release drainage. Also noted to have bilateral lower extremity swelling, no calf tenderness. Upon discharge, she will follow up in office at [facility]2 or sooner for any s/s infection. Qualifiers: Encounter type: initial encounter Fracture type: closed Qualified Code(s) : S72.001A - Fracture of unspecified part of neck of right femur, initial encounter for closed fracture Subjective Principal diagnosis: right hip fracture Interval history: Patient feeling well today but has had an increase in pain in the hip. States she moved earlier and felt a "pop" in the hip. She has had increased drainage from the incision today. Spoke with nurse who states she has changed the dressings twice today on her shift. Patient states she has not done therapy for a couple days due to pain in the hip. PT note from today states patient did participate in some therapy in bed but got dizzy so did not ambulate. Denies any calf pain or more than normal numbness in extremities. Objective Vital signs: Vital Signs Temp Pulse Resp BP Pulse Ox 06/03/17 14:45 98.5 F 89 18 145/78 98 06/03/17 09:28 96 06/03/17 07:28 98.6 F 80 18 101/67 96 06/03/17 03:54 98.7 F 81 19 140/83 95 06/02/17 23:25 98.0 F 76 22 117/77 93 06/02/17 19:44 97.9 F 91 21 101/71 91 Intake and Output 06/03/17 06/03/17 06/03/17 07:59 15:59 23:59 Intake Total 0 / 0 480 / 480 Output Total 150 / 150 0 / 0 Balance -150 / -150 480 / 480 Intake: Oral 0 / 0 480 / 480 Output: Urine 150 / 150 0 / 0 Other: Meal Lunch Percent of Meal Consumed 25% Stool Size Large Stool Consistency liquid Stool Color Brown # Voids 1 # Bowel Movements 1 Weight 96.3 kg Patient Weight 06/03/17 23:59 Weight 96.3 kg Incision: draining (dressings to right hip saturated and serous fluid oozing from around staple sites. No surrounding erythema, tissue soft to palpation. No calf tenderness. good dorsiflexion of foot, NV intact.) - Labs CBC & BMP: 06/03/17 05:42 06/03/17 13:31 Labs: Abnormal lab results RBC 2.70 M/mcL (3.82-4.97) L 06/03/17 05:42 Hgb 9.6 g/dL (11.5-15.4) L 06/03/17 05:42 Hct 28.8 % (35.3-44.9) L 06/03/17 05:42 MCV 106.7 fL (83.0-100.0) H 06/03/17 05:42 MCH 35.6 pg (28.0-33.3) H 06/03/17 05:42 RDW 16.2 % (11.5-14.5) H 06/03/17 05:42 Plt Count 127 K/mcL (140-400) L 06/03/17 05:42 Nucleated RBCs/100 WBC 0.4 /100 WBC (0) H 06/03/17 05:42 PT 14.4 Seconds (9.4-12.1) H 05/30/17 04:52 Potassium 4.6 mEq/L (3.5-4.5) H D 06/03/17 13:31 BUN 28 mg/dL (7-20) H 06/03/17 04:36 BUN/Creatinine Ratio 31 (6-26) H 06/03/17 04:36 Glucose 130 mg/dL (70-99) H 06/03/17 04:36 POC Glucose 114 (58-89) H 05/31/17 05:57 Calcium 7.6 mg/dL (8.6-10.8) L 06/03/17 04:36 Ferritin 1236 ng/ml (5-204) H 05/28/17 12:29 Total Bilirubin 3.9 mg/dL (0.2-1.2) H 05/28/17 03:22 AST 119 Units/L (5-34) H 05/28/17 03:22 Alkaline Phosphatase 470 Units/L (38-126) H 05/28/17 03:22 Albumin 2.0 g/dL (3.5-5.0) L 05/28/17 03:22 Globulin 4.0 g/dL (2.4-3.5) H 05/28/17 03:22 Albumin/Globulin Ratio 0.5 (1.1-2.2) L 05/28/17 03:22 Urine Color [place] (Yellow) A 05/27/17 03:00 Urine Clarity Cloudy (Clear) A 05/27/17 03:00 Urine Ketones Trace mg/dL (Negative) H 05/27/17 03:00 Urine Nitrite Positive (Negative) A 05/27/17 03:00 Urine Bilirubin Moderate (Negative) H 05/27/17 03:00 Urine Urobilinogen 2.0 mg/dL (Normal) H 05/27/17 03:00 Ur Leukocyte Esterase Moderate (Negative) H 05/27/17 03:00 Urine Microscopic WBC TNTC per hpf (0-3) H 05/27/17 03:00 Urine Bacteria Many per hpf (None-Few) H 05/27/17 03:00 Ur Culture Indicated? YES (NO) A 05/27/17 03:00 LAKHWINDER Screen DETECTED (None Detected) A 05/28/17 12:29 LAKHWINDER Titer 1:160 (<1:40) H 05/28/17 12:29 - VTE Documentation of Mechanical Device: Graduated compression elastic hosiery Consult Discharge Plan - Plan Referrals: Janet Montano PAC [Physician Safety Lamp Keeper] - (in 2 weeks) Santana Howard MD [Primary Care Provider] - (in 1-2 weeks) Jose Sam MD [Partnered Physician] - 06/06/17 9:00 am ([facility] appt at [facility] for chemo) Prescriptions: Morphine Immed Rel [Morphine Sulfate] 15 mg PO Q4HR PRN #20 tab PRN Reason: Moderate Pain Ondansetron [Zofran] 4 mg PO Q8HR PRN #30 tablet PRN Reason: Nausea FentaNYL PATCH [Duragesic] 25 mcg TD Q72H #7
[2017-06-04] MEDS: *HR* Morphine Immed Rel 30 MG TABLET PO PRN ×4 (02:21→17:46)
[2017-06-04] MEDS: *HR* Enoxaparin 30 MG/0.3 ML SYRINGE SQ SCH ×2 (05:37→17:41)
[2017-06-04 08:19] LABS: BUN/Creatinine Ratio 33 (6-26); Blood Urea Nitrogen 27 mg/dL (7-20); Calcium 7.6 mg/dL (8.6-10.8); Carbon Dioxide 26 mEq/L (19-29); Chloride 105 mEq/L (98-109); Glucose 128 mg/dL (70-99); Osmolality,Calculated 291 (280-300); Potassium 3.8 mEq/L (3.5-4.5); Sodium 137 mEq/L (136-145); eGFR For African Americans > 60 (> 60); eGFR For Non-African Americans > 60 (> 60)
--- NOTE | 2017-06-04 09:20 | Palliative Progress Note ---
Date of Encounter: 06/04/17 Time of Encounter: 09:15 - Assessment and plan (1) Cancer associated pain Current Visit: Yes Status: Acute Assessment and plan: Still with significant pain. Utilized breakthrough pain med x4 yesterday. Will increase Fentanyl patch by 12mcg for total of 37mcg prior to discharge. Continue IR MOrphine for breakthrough pain. (2) Cirrhosis Current Visit: Yes Status: Chronic Qualifiers: Hepatic cirrhosis type: unspecified hepatic cirrhosis Ascites presence: without ascites Qualified Code(s): K74.60 - Unspecified cirrhosis of liver (3) Constipation due to opioid therapy Current Visit: Yes Status: Acute Assessment and plan: + loose BM's. (4) Counseling regarding advanced care planning and goals of care Current Visit: Yes Status: Acute Assessment and plan: Anticipate D/C to [facility] today. Plan is for further radiation and possible chemotherapy after rehab. (5) Metastatic breast cancer Current Visit: Yes Status: Chronic - Time Spent With Patient Total time spent is greater than 50% in coordination of care (as documented) at patient's floor/unit and/or counseling patient: - Subjective Interval history: Patient awake and alert, son at bedside. C/o pain and soreness from rt hip. Dressing with pink drainage. Ortho notes from yesterday reviewed. States she has more discomfort since not receiving IV pain medication. - Constitutional Vitals: Abnormal lab results RBC 2.70 M/mcL (3.82-4.97) L 06/03/17 05:42 Hgb 9.6 g/dL (11.5-15.4) L 06/03/17 05:42 Hct 28.8 % (35.3-44.9) L 06/03/17 05:42 MCV 106.7 fL (83.0-100.0) H 06/03/17 05:42 MCH 35.6 pg (28.0-33.3) H 06/03/17 05:42 RDW 16.2 % (11.5-14.5) H 06/03/17 05:42 Plt Count 127 K/mcL (140-400) L 06/03/17 05:42 Nucleated RBCs/100 WBC 0.4 /100 WBC (0) H 06/03/17 05:42 PT 14.4 Seconds (9.4-12.1) H 05/30/17 04:52 BUN 27 mg/dL (7-20) H 06/04/17 06:46 BUN/Creatinine Ratio 33 (6-26) H 06/04/17 06:46 Glucose 128 mg/dL (70-99) H 06/04/17 06:46 POC Glucose 114 (58-89) H 05/31/17 05:57 Calcium 7.6 mg/dL (8.6-10.8) L 06/04/17 06:46 Ferritin 1236 ng/ml (5-204) H 05/28/17 12:29 Total Bilirubin 3.9 mg/dL (0.2-1.2) H 05/28/17 03:22 AST 119 Units/L (5-34) H 05/28/17 03:22 Alkaline Phosphatase 470 Units/L (38-126) H 05/28/17 03:22 Albumin 2.0 g/dL (3.5-5.0) L 05/28/17 03:22 Globulin 4.0 g/dL (2.4-3.5) H 05/28/17 03:22 Albumin/Globulin Ratio 0.5 (1.1-2.2) L 05/28/17 03:22 Urine Color [place] (Yellow) A 05/27/17 03:00 Urine Clarity Cloudy (Clear) A 05/27/17 03:00 Urine Ketones Trace mg/dL (Negative) H 05/27/17 03:00 Urine Nitrite Positive (Negative) A 05/27/17 03:00 Urine Bilirubin Moderate (Negative) H 05/27/17 03:00 Urine Urobilinogen 2.0 mg/dL (Normal) H 05/27/17 03:00 Ur Leukocyte Esterase Moderate (Negative) H 05/27/17 03:00 Urine Microscopic WBC TNTC per hpf (0-3) H 05/27/17 03:00 Urine Bacteria Many per hpf (None-Few) H 05/27/17 03:00 Ur Culture Indicated? YES (NO) A 05/27/17 03:00 LAKHWINDER Screen DETECTED (None Detected) A 05/28/17 12:29 LAKHWINDER Titer 1:160 (<1:40) H 05/28/17 12:29 General appearance: Present: no acute distress - Respiratory Respiratory exam: Present: decreased breath sounds, CTAB - Cardiovascular Cardiovascular exam: Present: +S1, +S2 - GI/Abdominal GI/Abdominal exam: Present: distended, normal bowel sounds, soft - Extremities Exam Additional comments: 2-3+ edema bilaterally - Neurological Exam Neurological exam: Present: alert, oriented X3 - Skin Skin exam: Present: dry, warm Palliative Quality Palliative Quality: Screen for Code Status: Yes, Screen for Goals of Care: Yes, Screen for Pain: Yes, If Pain Regimen Started, Initiate Bowel Regimen: Yes, Screen for Nausea/Vomitting: Yes - Labs CBC & Chem 7: 06/03/17 05:42 06/04/17 06:46 Labs: Laboratory Results - last 24 hr 06/03/17 06/04/17 13:31 06:46 Sodium 137 Potassium 4.6 H D 3.8 Chloride 105 Carbon Dioxide 26 BUN 27 H Creatinine 0.81 Est GFR ( Amer) > 60 Est GFR (Non-Af Amer) > 60 BUN/Creatinine Ratio 33 H Glucose 128 H Calculated Osmolality 291 Calcium 7.6 L - Impressions Impressions Hip X-Ray 06/03/17 10:48 IMPRESSION: ORIF of proximal right femur with acute pathologic fracture of the right femoral neck and probable extension to the right greater trochanter. D/ / Christiano De La Garza MD / Christiano De La Garza MD Interpreting Provider: Christiano De La Garza MD - ABG Interpretation ABG results: PT/INR, D-dimer PT 14.4 Seconds (9.4-12.1) H 05/30/17 04:52 Consult Discharge Plan - Plan Referrals: Janet Montano PAC [Physician Cocoa Press Operator] - (in 2 weeks) Santana Howard MD [Primary Care Provider] - (in 1-2 weeks) Jose Sam MD [Partnered Physician] - 06/06/17 9:00 am (Follow up appt at cancer center for chemo) Prescriptions: Morphine Immed Rel [Morphine Sulfate] 15 mg PO Q4HR PRN #20 tab PRN Reason: Moderate Pain Ondansetron [Zofran] 4 mg PO Q8HR PRN #30 tablet PRN Reason: Nausea FentaNYL PATCH [Duragesic] 25 mcg TD Q72H #7
[2017-06-04] MEDS ORDERED: *HR* FentaNYL PATCH 12 MCG PATCH TD SCH (09:30)
[2017-06-04] MEDS: Thiamine (B-1) 100 MG TABLET PO SCH (09:41)
[2017-06-04] MEDS: Folic Acid 1 MG TABLET PO SCH (09:42)
--- NOTE | 2017-06-04 10:13 | Internal Med Progress Note ---
Date of Encounter: 06/04/17 Time of Encounter: 10:10 - Subjective Interval history: Pt is a 67y/o female with exntensive medical history including metastatic breast ca to the bone and spine admitted for acute right hip pain and AMS. She was found to have right femoral neck fracture for which she underwent surgical repair. At this time she is back to baseline mental status. Pt's presenting symptoms have resolved and was discharged to ECF yesterday pending ECF placement. She has been followed by palliative care and her pain medications has been adjusted. Pt is to be discharged to ECF if placement is arranged today. No overnight events reported. Assessment/Plan (1) Fracture of femoral neck, right Priority: Primary Status: Acute Qualifiers: Encounter type: initial encounter Fracture type: closed Qualified Code(s) : S72.001A - Fracture of unspecified part of neck of right femur, initial encounter for closed fracture (2) Metastatic breast cancer Priority: Secondary Status: Chronic (3) Chronic pain Priority: Secondary Status: Acute Qualifiers: Chronic pain type: chronic pain syndrome Qualified Code(s): G89.4 - Chronic pain syndrome (4) Chemotherapy-induced neuropathy Priority: Secondary Status: Chronic (5) Altered mental status Priority: Secondary Status: Resolved Qualifiers: Altered mental status type: somnolence Qualified Code(s): R40.0 - Somnolence (6) Cirrhosis Priority: Secondary Status: Chronic Qualifiers: Hepatic cirrhosis type: unspecified hepatic cirrhosis Ascites presence: without ascites Qualified Code(s): K74.60 - Unspecified cirrhosis of liver (7) Depression Priority: Secondary Status: Chronic Qualifiers: Depression Type: major depressive disorder Major depression recurrence: recurrent Active/Remission status: in partial remission Qualified Code(s): F33.41 - Major depressive disorder, recurrent, in partial remission (8) Lower extremity edema Priority: Secondary Status: Acute (9) UTI (urinary tract infection) Priority: Secondary Status: Acute Qualifiers: Urinary tract infection type: acute cystitis Hematuria presence: without hematuria Qualified Code(s): N30.00 - Acute cystitis without hematuria (10) DVT prophylaxis Priority: Secondary Status: Acute - Constitutional Vitals: Temp Pulse Resp BP Pulse Ox 98.4 F 81 16 115/79 92 06/04/17 06:49 06/04/17 06:49 06/04/17 06:49 06/04/17 06:49 06/04/17 09:44 General appearance: Present: A&O X 3, no acute distress, answers questions appropriately - Head Head exam: Present: atraumatic, normocephalic - Respiratory Respiratory exam: Absent: respiratory distress, wheezes - Cardiovascular Cardiovascular exam: Present: RRR, +S1, +S2 - GI/Abdominal GI/Abdominal exam: Present: distended, normal bowel sounds, soft. Absent: tenderness - Extremities Exam Extremities exam: Present: pedal edema, warm, radial pulses palpable and symmetrical. Absent: calf tenderness - Neurological Exam Neurological exam: Present: alert, oriented X3 Internal Medicine: Result - Labs CBC & Chem 7: 06/03/17 05:42 06/04/17 06:46 Labs: BMP 06/03/17 06/04/17 13:31 06:46 Sodium 137 Potassium 4.6 H D 3.8 Chloride 105 Carbon Dioxide 26 BUN 27 H Creatinine 0.81 Glucose 128 H Calcium 7.6 L - ABG Interpretation ABG results: PT/INR, D-dimer PT 14.4 Seconds (9.4-12.1) H 05/30/17 04:52 - Impressions Impressions Hip X-Ray 06/03/17 10:48 IMPRESSION: ORIF of proximal right femur with acute pathologic fracture of the right femoral neck and probable extension to the right greater trochanter. D/ / Christiano De La Garza MD / Christiano De La Garza MD Interpreting Provider: Christiano De La Garza MD - VTE Documentation of Mechanical Device: Graduated compression elastic hosiery Consult Discharge Plan - Plan Referrals: Janet Montano PAC [Physician Thiokol Operator] - (in 2 weeks) Santana Howard MD [Primary Care Provider] - (in 1-2 weeks) Jose Sam MD [Partnered Physician] - 06/06/17 9:00 am (Follow up appt at cancer center for chemo) Prescriptions: Morphine Immed Rel [Morphine Sulfate] 15 mg PO Q4HR PRN #20 tab PRN Reason: Moderate Pain Ondansetron [Zofran] 4 mg PO Q8HR PRN #30 tablet PRN Reason: Nausea FentaNYL PATCH [Duragesic] 25 mcg TD Q72H #7
[2017-06-04] MEDS ORDERED: Sennosides/Docusate Sodium TABLET PO PRN (12:56)
[2017-06-04 19:33] VITALS: BP 116/81
== END 2017-06-04 19:38 | DRG 480 ==
LOC: 3ANU 21:51 → EMEROO 21:51 → SUATTDRO 05-27 03:11 → 3ANU 05-27 03:50 → SUATTDRO 05-29 13:53
PROVIDERS: ADMIT Hospitalist; ATTEND Internal Medicine